=== PATIENT | female | born 1950 | race Caucasian/White ===

== ENCOUNTER 2018-04-27 13:14 | Inpatient (IN) | payer MEDICARE, OTHER, SELFPAY ==
[2018-04-27] VITALS (12 sets, daily range): BP systolic 69–145; BP diastolic 50–76; PULSE 56–100; RESP 14–18; TEMP 36.6–38.3; O2SAT 91–99; BMI 42.9; BMI 45.8; BMI 45.9
--- NOTE | 2018-04-27 13:47 | CT_ITS ---
STUDY: CT ABDOMEN AND PELVIS WITHOUT CONTRAST REASON FOR EXAM: Female, 67 years old. Left flank pain. RADIATION DOSAGE (If Supplied By Facility): CTDIvol = ( 24.18 ) mGy, DLP = ( 1208.07 ) mGycm TECHNIQUE: Transaxial images were obtained from the dome of the diaphragm to the symphysis pubis without oral contrast, and without intravenous contrast. Sagittal and coronal images were reconstructed. Individualized dose optimization techniques were used for this CT. COMPARISON: None. FINDINGS: Minimally increased linear markings at the lung bases suggestive of atelectasis. Coronary artery calcification. There is decreased attenuation of the liver consistent with steatosis. There are multiple gallstones. Normal spleen. Normal pancreas. There is a small, circumscribed, smooth, low attenuation left adrenal mass, consistent with an adrenal adenoma. This measures 2.1 cm. Normal right adrenal gland. Normal right kidney. Left perinephric stranding. Mild degree of left hydronephrosis due to a 6.4 mm calculus at the left ureteral pelvic junction. There is a small hiatal hernia. Normal small intestine. Normal colon. The appendix is visualized and appears normal. There is diffuse atherosclerotic calcification of the abdominal aorta and its major visceral branches, without a demonstrated aneurysm. Normal inferior vena cava. Normal retroperitoneum. Normal urinary bladder. Evidence of prior bilateral tubal ligation. Varicosities are seen in both groins. There are degenerative changes of the visualized lumbar spine. CT/Abdomen/Pelvis without Cont IMPRESSION: 6.4 mm catheter is at the left ureteropelvic junction causing left hydronephrosis. Findings suggestive of a 2.1 cm adenoma in the left adrenal gland. Cholelithiasis. Electronically Signed: Donaldo Gambino MD at 15:12 EDT Tel [phone], Service support ,
[2018-04-27] MEDS: 0.9% Normal Saline 1,000 ML 125 ML IV (14:24)
[2018-04-27] MEDS: Ketorolac 30 MG/ML Syringe 15 MG IV (14:25)
[2018-04-27] MEDS: Morphine 4 MG/ML Syringe IV (14:25)
[2018-04-27] MEDS: Ondansetron 4 MG/2 ML Vial IV (14:25)
[2018-04-27 14:52] LABS: Absolute Lymphocyte Count 1.01 X10^3/ul (0.83-4.51); Basophil# 0.01 X10^3/uL; Basophil% 0.1 % (0-1); Hematocrit 44.2 % (37-47); Hemoglobin 14.4 g/dl (12.0-15.0); Lymphocyte # 1.01 X10^3/ul (4.0); Lymphocyte % 6.7 % (19-41); Mean Corp Hgb Conc 32.6 g/gl (32-36); Mean Corpuscular Hgb 29.4 pg (27.0-32.0); Mean Corpuscular Volume 90.2 fL (81-99); Mean Platelet Vol. 11.5 fl (6.2-12.0); Monocyte# 1.09 X10^3/uL; Monocyte% 7.2 % (0-10); Neutrophil # 12.99 X10^3/uL (2.7-7.7); Neutrophil % 85.9 % (47-70); POSITIVE COUNT NO; POSITIVE DIFFERENTIAL NO; POSITIVE MORPHOLOGY NO; Platelet Count 179 K/mm3 (150-450); RBC Distribution Width CV 14.2 % (11.6-14.6); RBC Distribution Width SD 46.4 fl (35.1-43.9); White Blood Count 15.1 K/mm3 (4.4-11.0)
[2018-04-27 14:52] LABS: Mucous, Urine 0 SEEN /hpf (<or=2+)
[2018-04-27 14:54] LABS: Color, Urine Yellow (Yellow); Glucose, Dipstick Normal (Normal); Ketone-Dipstick 5 mg/dl (Negative); Leukocyte Esterase-Dipstick 500 /ul (Negative); Nitrite-Dipstick Positive (Negative); Occult Blood-Urine 250 /ul (Negative); Protein-Dipstick 100 mg/dl (Negative); Urine Bilirubin Dipstick Negative (Negative); Urine Clarity Sl. Cloudy (Clear); Urine Urobilinogen Normal (Normal)
[2018-04-27 15:02] LABS: Bacteria 1+ /hpf (None Seen); Red Blood Cells-Urine 25-50 SEEN /hpf (0-5); Squamous Epithelial Cells - UA 0-5 SEEN /hpf (5-10); White Blood Cells 50-100 SEEN /hpf (0-5)
[2018-04-27 15:10] LABS: Anion Gap 11 (5-15); BUN 21 mg/dL (7-18); BUN/Creat Ratio 22.3 RATIO (10-20); Calcium,Total 8.8 mg/dL (8.5-10.1); Chloride 104 mmol/L (98-107); Creatinine, Serum 0.94 mg/dL (0.55-1.02); EST Glomerular Filtration Rate 63 mL/min (>60); Est Glom Filt Rate - Afr Amer 76 mL/min (>60); Estimated Creatinine Clearance 49.46 ml/min; Glucose 163 mg/dL (74-106); Potassium 3.9 mmol/L (3.5-5.1); Sodium Level 139 mmol/L (136-145)
--- NOTE | 2018-04-27 15:38 | ED.VISSUMM ---
- ER Visit Summary Date of Service: 04/27/18 Chief Complaint: [Left flank pain] History of Present Illness: The patient is a 67 F [presents to the emergency department with complaint of left flank pain that started yesterday. Patient had a hard time sleeping last night secondary to pain. Patient's been having dry heaves. She denies any dysuria however she has had frequency. She denies hematuria. Patient's had subjective fever and chills at home.] Physical Examination: [HEENT-PERRLA, EOMI. Cranial nerves II through XII grossly intact. TMs clear. Mucous membranes moist. No adenopathy. Cardiovascular-regular rate and rhythm without murmur or ectopy Lungs-clear to auscultation, chest wall stable without crepitus or subcu emphysema Abdomen-normoactive bowel sounds, soft. Patient has tenderness over the left CVA and mild tenderness over left upper quadrant. There is no rebound, rigidity, or perineal signs. Extremities-intact ?4, normal range of motion, normal pulses, atraumatic] Test Results: [CBC with differential obtained showed an elevated white blood cell count of 15,000, hemoglobin 14, hematocrit 44, platelets 179. Chemistries unremarkable. Urinalysis was positive for 500 leukocyte esterase positive for nitrites positive for 50-100 WBCs,25-50 RBCs and +1 bacteria.] CT flank obtained showed a 6.5 mm calculus at the left UPJ causing hydronephrosis Emergency Department Course and Treatment: [Patient was medicated with Dilaudid Zofran and Toradol and patient had good pain control. Patient was started on Rocephin 1 g IV.] Treatment Plan: [Case was discussed with who asked that we admit the medicine he will consult. I discussed case with Dr. Fajardo who will admit patient] Disposition: [Admit] Impression: [Kidney stone with colic UTI] This note was generated with [employer] dictation software. It may contain incorrect words, spelling, and punctuation that were not noted in review of the chart prior to signing ED Disposition - Plan for ED Patient: Chief Complaint: Flank Pain Referrals: Toño Hooker MD [Primary Care Provider] -
--- NOTE | 2018-04-27 15:42 | ED.DCSUM_ITS ---
- ER Visit Summary Date of Service: 04/27/18 Chief Complaint: [Left flank pain] History of Present Illness: The patient is a 67 F [presents to the emergency department with complaint of left flank pain that started yesterday. Patient had a hard time sleeping last night secondary to pain. Patient's been having dry heaves. She denies any dysuria however she has had frequency. She denies hematuria. Patient's had subjective fever and chills at home.] Physical Examination: [HEENT-PERRLA, EOMI. Cranial nerves II through XII grossly intact. TMs clear. Mucous membranes moist. No adenopathy. Cardiovascular-regular rate and rhythm without murmur or ectopy Lungs-clear to auscultation, chest wall stable without crepitus or subcu emphysema Abdomen-normoactive bowel sounds, soft. Patient has tenderness over the left CVA and mild tenderness over left upper quadrant. There is no rebound, rigidity , or perineal signs. Extremities-intact ?4, normal range of motion, normal pulses, atraumatic] Test Results: [CBC with differential obtained showed an elevated white blood cell count of 15,000, hemoglobin 14, hematocrit 44, platelets 179. Chemistries unremarkable. Urinalysis was positive for 500 leukocyte esterase positive for nitrites positive for 50-100 WBCs,25-50 RBCs and +1 bacteria.] CT flank obtained showed a 6.5 mm calculus at the left UPJ causing hydronephrosis Emergency Department Course and Treatment: [Patient was medicated with Dilaudid Zofran and Toradol and patient had good pain control. Patient was started on Rocephin 1 g IV.] Treatment Plan: [Case was discussed with who asked that we admit the medicine he will consult. I discussed case with Dr. Fajardo who will admit patient] Disposition: [Admit] Impression: [Kidney stone with colic UTI] This note was generated with [employer] dictation software. It may contain incorrect words, spelling, and punctuation that were not noted in review of the chart prior to signing ED Disposition - Plan for ED Patient: Chief Complaint: Flank Pain Referrals: Toño Hooker MD [Primary Care Provider] -
--- NOTE | 2018-04-27 16:18 | ED.RN ---
called report to Tania in [facility]
--- NOTE | 2018-04-27 16:28 | PCM.HP.STD ---
Problem List (1) HTN (hypertension) Status: Chronic (2) Type 2 diabetes mellitus Status: Chronic (3) Morbid obesity with BMI of 40.0-44.9, adult Status: Chronic (4) Hyperlipidemia Status: Chronic (5) Atrial fibrillation Status: Chronic (6) Recurrent nephrolithiasis Status: Acute (7) Pyelonephritis Status: Acute (8) Cholelithiasis Status: Chronic (9) Adrenal mass, left Status: Acute Comment: probable adenoma (10) Hydronephrosis of left kidney Status: Acute (11) History of colon polyps Status: Chronic Comment: benign, last colonoscopy in 2002 History of Present Illness Date of Admission: 04/27/18 Chief Complaint: Left back and flank pain associated with fever/chills/sweats and nausea/vomiting The patient is a 67 year old F with a past medical history of hypertension, diabetes mellitus type 2, atrial fibrillation, chronic anticoagulation with Eliquis, nephrolithiasis, hyperlipidemia and morbid obesity who presented to the emergency department at [facility] on 05-13 complaining of left flank pain and left lateral abdominal pain that started on 04/26/2018 at approximately 4 PM. She denied hematuria. She complained of fever, chills, sweats, nausea and vomiting in addition to the pain. CT scan of the abdomen and pelvis done in the emergency room showed left perinephric stranding with a mild degree of left hydronephrosis due to a 6.4 mm calculus at the left UP junction. Coincidental findings included a 2.1 cm left adrenal mass, a small hiatal hernia, steatosis, multiple gallstones and diffuse atherosclerotic calcification of the abdominal aorta and its major visceral branches without a demonstrated aneurysm. Significant lab included an elevated white blood cell count at 15.1 with 86% neutrophils. Hemoglobin and platelets were within normal limits. Electrolytes were within normal limits and the BUN was 21 with a creatinine of 0.94. UA was positive for nitrite and had 50-100 WBCs per high-power field and 25-50 RBCs. She was given 1 g of ceftriaxone in the emergency room and sent to surgery for Stent placement by Dr. Webb. Past Medical History Past Medical History (Chronic Problems): Chronic Problems HTN (hypertension) (Chronic) Type 2 diabetes mellitus (Chronic) Morbid obesity with BMI of 40.0-44.9, adult (Chronic) Hyperlipidemia (Chronic) Atrial fibrillation (Chronic) Cholelithiasis (Chronic) History of colon polyps (Chronic) benign, last colonoscopy in 2002 Allergies No Known Allergies Allergy (Verified 04/27/18 13:15) Home Medications: Ambulatory Orders Medication Instructions Recorded Apixaban [Eliquis] 5 mg PO BID 04/27/18 Diltiazem HCl [Cartia Xt] 180 mg PO DAILY 04/27/18 Metformin HCl 500 mg PO DAILY 04/27/18 Pravastatin [Pravachol] 40 mg PO QHS 04/27/18 Ubidecarenone [Co Q-10] 200 mg PO DAILY 04/27/18 Valsartan [Diovan] 160 mg PO DAILY 04/27/18 Surgical History: - - Tubal ligation, section, resection of a portion of the labia due to cysts Psychiatric History: No pertinent psych hx 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 A maternal aunt also had a stroke. Paternal History Items: - - Father at the age of 80 and the cause of is not known. Offspring History Items: - - She has 1 child, a son, and he is healthy. Review of Systems Constitutional: Reports: Chills, Fever, Night Sweats Eyes: Denies: Vision Change HEENT: Denies: Head Aches, Sinus Congestion, Sinus Drainage, Sore Throat Cardiovascular: Reports: Edema. Denies: Chest Pain, Light Headedness, Palpitations, Paroxysmal Noc. Dyspnea, Syncope Respiratory: Denies: Cough, Shortness of Breath, Sputum production, Wheezing Gastrointestinal: Reports: Nausea, Vomiting. Denies: Abdominal Pain, Diarrhea Genitourinary: Reports: - - She has Left Flank pain. Denies: Dysuria, Hematuria, Incontinence, Retention Gynecological: Denies: Breast symptoms, Vaginal discharge Musculoskeletal: Denies: Joint Pain, Joint Tenderness Skin: Denies: Jaundice, Rash, Wounds Neurological: Denies: Numbness, Tingling, Focal weakness Psychiatric: Denies: Anxiety, Depression, Homicidal Ideations, Suicidal Ideations Endocrine: Reports: Change in Body Habitus - has lost 50-60 punds in the last 2 years....intentional. Denies: Hx of Thyroiditis Hematologic/ Lymphatic: Denies: Hx of blood clot VTE Information - Inpt Only VTE Present on Admission: No VTE Mechan Device Prophylaxis: None VTE Pharm Prophylaxis ordered?: No Reason prophylaxis not ordered:: Treatment Not Indicated - Patient is on Eliquis twice daily for treatment of atrial fibrillation. Patient Problems: Active and Suspected Problems Recurrent nephrolithiasis (Acute) Pyelonephritis (Acute) Adrenal mass, left (Acute) probable adenoma Hydronephrosis of left kidney (Acute) - Physical Exam General: Alert, Oriented x3, Cooperative, Well developed, Well nourished HEENT: Atraumatic, PERRLA, EOMI, Normocephalic Oral: No Gingival or Mucosal Lesions/ Ulcerations, Dry Mucosa Neck: No JVD, Negative Carotid Bruits, No Nodes, Trachea Midline Lungs: Clear to auscultation, No rhonchi, No wheeze, No rales Cardiovascular: No murmurs, Irregular Rate, No rub noted, No Gallop, - - She is in atrial fibrillation Abdomen: Bowel Sounds Present, Soft, Non Tender, Non-Distended, No Hepato-splenomegaly, - - She does have pain in the left flank Extremities: No clubbing, No cyanosis, No Calf Tenderness, Edema - Trace edema of the ankles bilaterally and the dorsum of the foot, Peripheral Pulses Normal, - - She has superficial varicosities of both lower extremities Skin: No rashes, No breakdown Musculoskeletal: No Muscle Wasting Neurological: Cranial nerves II-XII grossly intact, Neuro grossly intact Psych/Mental Status: Normal Affect, Appropriate Vital Signs Temp Pulse Resp BP Pulse Ox 98.5 F 100 16 145/76 H 99 04/27/18 13:15 04/27/18 13:15 04/27/18 13:15 04/27/18 13:15 04/27/18 13:15 Oxygen Delivery Method Room Air Weight: 250 lb Body Mass Index (BMI) 42.9 Laboratory Tests Past 24 Hrs 04/27/18 04/27/18 04/27/18 14:25 14:25 14:45 WBC 15.1 H RBC 4.90 Hgb 14.4 Hct 44.2 MCV 90.2 MCH 29.4 MCHC 32.6 RDW 14.2 RDW Differential 46.4 H Plt Count 179 MPV 11.5 Immature Gran % (Auto) 0.100 Neut % (Auto) 85.9 H Lymph % (Auto) 6.7 L [place] % (Auto) 7.2 Eos % (Auto) 0.0 Baso % (Auto) 0.1 Absolute Neuts (auto) 13.0 H Absolute Lymphs (auto) 1.01 Total Counted Not Reportable Sodium 139 Potassium 3.9 Chloride 104 Carbon Dioxide 24.0 Anion Gap 11 BUN 21 H Creatinine 0.94 Estim Creat Clear Calc 49.46 Est GFR (MDRD) Af Amer 76 Est GFR (MDRD) Non-Af 63 BUN/Creatinine Ratio 22.3 H Glucose 163 H Calcium 8.8 Urine Color Yellow Urine Clarity Sl. Cloudy Urine pH 5.0 Ur Specific [place] 1.020 Urine Protein 100 H Urine Glucose (UA) Normal Urine Ketones 5 H Urine Occult Blood 250 H Urine Nitrite Positive H Urine Bilirubin Negative Urine Urobilinogen Normal Ur Leukocyte Esterase 500 H Urine RBC 25-50 SEEN Urine WBC 50-100 SEEN Ur Squamous Epith Cells 0-5 SEEN Urine Bacteria 1+ Urine Mucus 0 SEEN Assessment/Plan All Active Problems Recurrent nephrolithiasis (Acute) Pyelonephritis (Acute) Adrenal mass, left (Acute) Hydronephrosis of left kidney (Acute) Impressions 1. Pyelonephritis 2. Left hydronephrosis 3. Recurrent nephrolithiasis with stone impacted at the left UPJ 4. Hypertension 5. Diabetes mellitus type 2 6. Hyperlipidemia 7. Morbid obesity 8. Cholelithiasis 9. Left adrenal mass-likely a adenoma 10. Steatosis Pt taken directly to surgery from the ED. Antibiotics IV fluids urine and blood cultures check a lactic acid and hemoglobin A1c Recheck the lab in the AM Hold Eliquis for now and if no significant hematuria can likely restart in the AM Continue diltiazem, pravastatin and valsartan. Hold metformin for today and order 4 times daily Accu-Cheks with sliding scale insulin coverage Consult Dr. Webb Code Visit Inpatient E&M: 41296 Init Hosp L3
--- NOTE | 2018-04-27 16:39 | HP.PCM_ITS ---
Problem List (1) HTN (hypertension) Status: Chronic (2) Type 2 diabetes mellitus Status: Chronic (3) Morbid obesity with BMI of 40.0-44.9, adult Status: Chronic (4) Hyperlipidemia Status: Chronic (5) Atrial fibrillation Status: Chronic (6) Recurrent nephrolithiasis Status: Acute (7) Pyelonephritis Status: Acute (8) Cholelithiasis Status: Chronic (9) Adrenal mass, left Status: Acute Comment: probable adenoma (10) Hydronephrosis of left kidney Status: Acute (11) History of colon polyps Status: Chronic Comment: benign, last colonoscopy in 2002 History of Present Illness Date of Admission: 04/27/18 Chief Complaint: Left back and flank pain associated with fever/chills/sweats and nausea/vomiting The patient is a 67 year old F with a past medical history of hypertension, diabetes mellitus type 2, atrial fibrillation, chronic anticoagulation with Eliquis, nephrolithiasis, hyperlipidemia and morbid obesity who presented to the emergency department at [facility] on 05-13 complaining of left flank pain and left lateral abdominal pain that started on 04/26/2018 at approximately 4 PM. She denied hematuria. She complained of fever, chills, sweats, nausea and vomiting in addition to the pain. CT scan of the abdomen and pelvis done in the emergency room showed left perinephric stranding with a mild degree of left hydronephrosis due to a 6.4 mm calculus at the left UP junction. Coincidental findings included a 2.1 cm left adrenal mass, a small hiatal hernia, steatosis, multiple gallstones and diffuse atherosclerotic calcification of the abdominal aorta and its major visceral branches without a demonstrated aneurysm. Significant lab included an elevated white blood cell count at 15.1 with 86% neutrophils. Hemoglobin and platelets were within normal limits. Electrolytes were within normal limits and the BUN was 21 with a creatinine of 0.94. UA was positive for nitrite and had 50-100 WBCs per high- power field and 25-50 RBCs. She was given 1 g of ceftriaxone in the emergency room and sent to surgery for Stent placement by Dr. Webb. Past Medical History Past Medical History (Chronic Problems): Chronic Problems HTN (hypertension) (Chronic) Type 2 diabetes mellitus (Chronic) Morbid obesity with BMI of 40.0-44.9, adult (Chronic) Hyperlipidemia (Chronic) Atrial fibrillation (Chronic) Cholelithiasis (Chronic) History of colon polyps (Chronic) benign, last colonoscopy in 2002 Allergies No Known Allergies Allergy (Verified 04/27/18 13:15) Home Medications: Ambulatory Orders Medication Instructions Recorded Apixaban [Eliquis] 5 mg PO BID 04/27/18 Diltiazem HCl [Cartia Xt] 180 mg PO DAILY 04/27/18 Metformin HCl 500 mg PO DAILY 04/27/18 Pravastatin [Pravachol] 40 mg PO QHS 04/27/18 Ubidecarenone [Co Q-10] 200 mg PO DAILY 04/27/18 Valsartan [Diovan] 160 mg PO DAILY 04/27/18 Surgical History: - - Tubal ligation, section, resection of a portion of the labia due to cysts Psychiatric History: No pertinent psych hx 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 A maternal aunt also had a stroke. Paternal History Items: - - Father at the age of 80 and the cause of is not known. Offspring History Items: - - She has 1 child, a son, and he is healthy. Review of Systems Constitutional: Reports: Chills, Fever, Night Sweats Eyes: Denies: Vision Change HEENT: Denies: Head Aches, Sinus Congestion, Sinus Drainage, Sore Throat Cardiovascular: Reports: Edema. Denies: Chest Pain, Light Headedness, Palpitations, Paroxysmal Noc. Dyspnea, Syncope Respiratory: Denies: Cough, Shortness of Breath, Sputum production, Wheezing Gastrointestinal: Reports: Nausea, Vomiting. Denies: Abdominal Pain, Diarrhea Genitourinary: Reports: - - She has Left Flank pain. Denies: Dysuria, Hematuria , Incontinence, Retention Gynecological: Denies: Breast symptoms, Vaginal discharge Musculoskeletal: Denies: Joint Pain, Joint Tenderness Skin: Denies: Jaundice, Rash, Wounds Neurological: Denies: Numbness, Tingling, Focal weakness Psychiatric: Denies: Anxiety, Depression, Homicidal Ideations, Suicidal Ideations Endocrine: Reports: Change in Body Habitus - has lost 50-60 punds in the last 2 years....intentional. Denies: Hx of Thyroiditis Hematologic/ Lymphatic: Denies: Hx of blood clot VTE Information - Inpt Only VTE Present on Admission: No VTE Mechan Device Prophylaxis: None VTE Pharm Prophylaxis ordered?: No Reason prophylaxis not ordered:: Treatment Not Indicated - Patient is on Eliquis twice daily for treatment of atrial fibrillation. Patient Problems: Active and Suspected Problems Recurrent nephrolithiasis (Acute) Pyelonephritis (Acute) Adrenal mass, left (Acute) probable adenoma Hydronephrosis of left kidney (Acute) - Physical Exam General: Alert, Oriented x3, Cooperative, Well developed, Well nourished HEENT: Atraumatic, PERRLA, EOMI, Normocephalic Oral: No Gingival or Mucosal Lesions/ Ulcerations, Dry Mucosa Neck: No JVD, Negative Carotid Bruits, No Nodes, Trachea Midline Lungs: Clear to auscultation, No rhonchi, No wheeze, No rales Cardiovascular: No murmurs, Irregular Rate, No rub noted, No Gallop, - - She is in atrial fibrillation Abdomen: Bowel Sounds Present, Soft, Non Tender, Non-Distended, No Hepato- splenomegaly, - - She does have pain in the left flank Extremities: No clubbing, No cyanosis, No Calf Tenderness, Edema - Trace edema of the ankles bilaterally and the dorsum of the foot, Peripheral Pulses Normal, - - She has superficial varicosities of both lower extremities Skin: No rashes, No breakdown Musculoskeletal: No Muscle Wasting Neurological: Cranial nerves II-XII grossly intact, Neuro grossly intact Psych/Mental Status: Normal Affect, Appropriate Vital Signs Temp Pulse Resp BP Pulse Ox 98.5 F 100 16 145/76 H 99 04/27/18 13:15 04/27/18 13:15 04/27/18 13:15 04/27/18 13:15 04/27/18 13:15 Oxygen Delivery Method Room Air Weight: 250 lb Body Mass Index (BMI) 42.9 Laboratory Tests Past 24 Hrs 04/27/18 04/27/18 04/27/18 14:25 14:25 14:45 WBC 15.1 H RBC 4.90 Hgb 14.4 Hct 44.2 MCV 90.2 MCH 29.4 MCHC 32.6 RDW 14.2 RDW Differential 46.4 H Plt Count 179 MPV 11.5 Immature Gran % (Auto) 0.100 Neut % (Auto) 85.9 H Lymph % (Auto) 6.7 L [place] % (Auto) 7.2 Eos % (Auto) 0.0 Baso % (Auto) 0.1 Absolute Neuts (auto) 13.0 H Absolute Lymphs (auto) 1.01 Total Counted Not Reportable Sodium 139 Potassium 3.9 Chloride 104 Carbon Dioxide 24.0 Anion Gap 11 BUN 21 H Creatinine 0.94 Estim Creat Clear Calc 49.46 Est GFR (MDRD) Af Amer 76 Est GFR (MDRD) Non-Af 63 BUN/Creatinine Ratio 22.3 H Glucose 163 H Calcium 8.8 Urine Color Yellow Urine Clarity Sl. Cloudy Urine pH 5.0 Ur Specific [place] 1.020 Urine Protein 100 H Urine Glucose (UA) Normal Urine Ketones 5 H Urine Occult Blood 250 H Urine Nitrite Positive H Urine Bilirubin Negative Urine Urobilinogen Normal Ur Leukocyte Esterase 500 H Urine RBC 25-50 SEEN Urine WBC 50-100 SEEN Ur Squamous Epith Cells 0-5 SEEN Urine Bacteria 1+ Urine Mucus 0 SEEN Assessment/Plan All Active Problems Recurrent nephrolithiasis (Acute) Pyelonephritis (Acute) Adrenal mass, left (Acute) Hydronephrosis of left kidney (Acute) Impressions 1. Pyelonephritis 2. Left hydronephrosis 3. Recurrent nephrolithiasis with stone impacted at the left UPJ 4. Hypertension 5. Diabetes mellitus type 2 6. Hyperlipidemia 7. Morbid obesity 8. Cholelithiasis 9. Left adrenal mass-likely a adenoma 10. Steatosis Pt taken directly to surgery from the ED. Antibiotics IV fluids urine and blood cultures check a lactic acid and hemoglobin A1c Recheck the lab in the AM Hold Eliquis for now and if no significant hematuria can likely restart in the AM Continue diltiazem, pravastatin and valsartan. Hold metformin for today and order 4 times daily Accu-Cheks with sliding scale insulin coverage Consult Dr. Webb Code Visit Inpatient E&M: 83252 Init Hosp L3
[2018-04-27] MEDS: Ceftriaxone 1 GM/50 ML BAG IV (18:50)
--- NOTE | 2018-04-27 18:58 | CON.PCM_ITS ---
Problem List (1) Left ureteral calculus Status: Acute Reason for Consult Date of Consultation: 04/27/18 Reason for Consultation: Obstruction of the left kidney from a proximal ureteral calculi History of Present Illness: The patient is a 67 year old female with multiple medical problems who presented to the emergency room with a severe pain from the left side from obstructing stone in the proximal left ureter patient was admitted for pain control and plan to place a stent to alleviate the obstruction and clear any infection. Past Medical History Past Medical History (Chronic Problems): Chronic Problems HTN (hypertension) (Chronic) Type 2 diabetes mellitus (Chronic) Morbid obesity with BMI of 40.0-44.9, adult (Chronic) Hyperlipidemia (Chronic) Atrial fibrillation (Chronic) Cholelithiasis (Chronic) History of colon polyps (Chronic) benign, last colonoscopy in 2002 Allergies No Known Allergies Allergy (Verified 04/27/18 13:15) Home Medications: Ambulatory Orders Medication Instructions Recorded Apixaban [Eliquis] 10 mg PO BID 04/27/18 Diltiazem HCl [Cartia Xt] 180 mg PO DAILY 04/27/18 Metformin HCl 500 mg PO DAILY 04/27/18 Pravastatin [Pravachol] 40 mg PO QHS 04/27/18 Ubidecarenone [Co Q-10] 200 mg PO DAILY 04/27/18 Valsartan [Diovan] 160 mg PO DAILY 04/27/18 Surgical History: noncontributory, - - Tubal ligation, section, resection of a portion of the labia due to cysts Psychiatric History: No pertinent psych hx LEADER WRITER History: No pertinent LEADER WRITER history Lives: Spouse/ Significant Other Smoking Status: Never smoker Tobacco Use: Non-smoker Alcohol: None Drugs: None - *Family History Maternal History Items: - - Mother with a stroke. A maternal aunt also had a stroke. Paternal History Items: - - Father at the age of 80 and the cause of is not known. Offspring History Items: - - She has 1 child, a son, and he is healthy. Review of Systems Constitutional: Denies: Chills, Fever, Weight Change HEENT: Denies: Head Aches, Sinus Congestion, Sinus Drainage Cardiovascular: Denies: Chest Pain, Palpitations Respiratory: Denies: Cough, Shortness of breath at rest, Sputum production Gastrointestinal: Reports: Abdominal Pain. Denies: Nausea, Vomiting Genitourinary: Denies: Dysuria Musculoskeletal: Denies: Joint Pain, Joint Tenderness Skin: Denies: Rash, Wounds Neurological: Denies: Numbness, Tingling, Focal weakness Psychiatric: Denies: Anxiety, Depression, Homicidal Ideations, Suicidal Ideations Hematologic/ Lymphatic: Denies: Easy Bruising, Easy Bleeding Physical Exam - Physical Exam Vital Signs Temp 98.5 F 04/27/18 13:15 Pulse 100 04/27/18 13:15 Resp 16 04/27/18 13:15 BP 145/76 H 04/27/18 13:15 Pulse Ox 99 04/27/18 13:15 Intake & Output 04/25/18 04/26/18 04/27/18 23:59 23:59 23:59 Weight: 113.398 kg General: Alert, Oriented x3 HEENT: Atraumatic Oral: Moist Mucosa Neck: Supple Lungs: Normal air movement Cardiovascular: Regular rate, Regular Rhythm Abdomen: Bowel Sounds Present Groin: No hernia Extremities: No clubbing, No cyanosis, No edema Laboratory Tests Past 24 Hrs 04/27/18 04/27/18 04/27/18 14:25 14:25 14:45 WBC 15.1 H RBC 4.90 Hgb 14.4 Hct 44.2 MCV 90.2 MCH 29.4 MCHC 32.6 RDW 14.2 RDW Differential 46.4 H Plt Count 179 MPV 11.5 Immature Gran % (Auto) 0.100 Neut % (Auto) 85.9 H Lymph % (Auto) 6.7 L [place] % (Auto) 7.2 Eos % (Auto) 0.0 Baso % (Auto) 0.1 Absolute Neuts (auto) 13.0 H Absolute Lymphs (auto) 1.01 Total Counted Not Reportable Sodium 139 Potassium 3.9 Chloride 104 Carbon Dioxide 24.0 Anion Gap 11 BUN 21 H Creatinine 0.94 Estim Creat Clear Calc 49.46 Est GFR (MDRD) Af Amer 76 Est GFR (MDRD) Non-Af 63 BUN/Creatinine Ratio 22.3 H Glucose 163 H Calcium 8.8 Urine Color Yellow Urine Clarity Sl. Cloudy Urine pH 5.0 Ur Specific [place] 1.020 Urine Protein 100 H Urine Glucose (UA) Normal Urine Ketones 5 H Urine Occult Blood 250 H Urine Nitrite Positive H Urine Bilirubin Negative Urine Urobilinogen Normal Ur Leukocyte Esterase 500 H Urine RBC 25-50 SEEN Urine WBC 50-100 SEEN Ur Squamous Epith Cells 0-5 SEEN Urine Bacteria 1+ Urine Mucus 0 SEEN Assessment/Plan All Active Problems Recurrent nephrolithiasis (Acute) Pyelonephritis (Acute) Adrenal mass, left (Acute) Hydronephrosis of left kidney (Acute) Left ureteral calculus (Acute) Plan for cystoscopy and left stent placement. Will then clear her infection with antibiotics and I will have my office set her up for ESWL of the left side next week.
[2018-04-27] MEDS: Lidocaine Jelly 2% 20 ML Syringe (URO-JET) 20 APPLIC (19:02)
--- NOTE | 2018-04-27 19:09 | PCM.OPRPT ---
Problem List (1) Left ureteral calculus Status: Acute Report of Operation Date of Procedure: 04/27/18 Pre-Operative Diagnosis: Left proximal ureteral calculi Post-Operative Diagnosis: Same Surgery/Procedure Performed:: Cystoscopy left stent placement Description of Surgical Findings:: 67-year-old female taken back to the operating room at the smooth induction of MAC local anesthesia she was placed supine on the table the legs in dorsal lithotomy position, the urethra and vaginal area were prepped and draped in usual sterile fashion, went into the bladder with a 21 [place] rigid cystourethroscope, she had a very tilted bladder with a significant cystocele at the deflect quite a bit in order to find ureteral orifices I then used a Glidewire and cannulated the left ureteral orifice advanced a wire up into the left kidney and then once a wire was in place I left the stent over the wire pulled the wire the stent coiled in good position in the kidney and bladder at the string of the stent and trimmed the length of the string. Patient's bladder was emptied her anesthesia was reversed and she can be admitted to the hospital for her infection and kidney stone. Plan to set her up in about a week for left ESWL. Type of Anesthesia:: Local MAC Drains: stent left side - Admit VTE Documentation VTE Present on Admission: No VTE Mechan Device Prophylaxis: SCD's VTE Pharm Prophylaxis ordered?: No Reason prophylaxis not ordered:: Treatment Not Indicated
[2018-04-27 19:31] LABS: Bedside Glucose 121 mg/dL (70-110)
[2018-04-27 22:19] LABS: Hemoglobin A1c 6.5 % (4.2-6.3)
[2018-04-27] MEDS: Famotidine 20 MG Tablet PO (23:06)
[2018-04-27] MEDS: Insulin Lispro 100 UNIT/ML INSULN.PEN SC (23:15)
[2018-04-27 23:25] LABS: Bedside Glucose 156 mg/dL (70-110)
[2018-04-27] MEDS: oxyCODONE 5 MG Tablet PO (23:41)
[2018-04-27] MEDS: Acetaminophen 325 MG Tablet 650 MG PO (23:47)
[2018-04-28] VITALS (14 sets, daily range): BP systolic 94–130; BP diastolic 47–67; PULSE 82–114; RESP 14–18; TEMP 37.1–38.8; O2SAT 91–96
[2018-04-28] MEDS: 0.9% Normal Saline 1,000 ML 125 ML IV ×3 (02:06→18:20)
[2018-04-28] MEDS: oxyCODONE 5 MG Tablet PO ×3 (05:14→21:06)
[2018-04-28 05:40] LABS: Absolute Lymphocyte Count 1.81 X10^3/ul (0.83-4.51); Absolute Neutrophil Count 11.4 X10^3/uL (2.0-7.7); Basophil# 0.02 X10^3/uL; Basophil% 0.1 % (0-1); Eosinophil# 0.01 X10^3/uL; Eosinophils% 0.1 % (0-5); Hematocrit 40.6 % (37-47); Hemoglobin 13.1 g/dl (12.0-15.0); Lymphocyte # 1.81 X10^3/ul (4.0); Lymphocyte % 12.8 % (19-41); Mean Corp Hgb Conc 32.3 g/gl (32-36); Mean Corpuscular Hgb 29.4 pg (27.0-32.0); Mean Corpuscular Volume 91.2 fL (81-99); Mean Platelet Vol. 11.5 fl (6.2-12.0); Monocyte# 0.85 X10^3/uL; Neutrophil # 11.42 X10^3/uL (2.7-7.7); Neutrophil % 80.9 % (47-70); Platelet Count 153 K/mm3 (150-450); RBC Distribution Width CV 14.6 % (11.6-14.6); RBC Distribution Width SD 49.4 fl (35.1-43.9); Red Blood Count 4.45 M/mm3 (4.2-5.4); White Blood Count 14.1 K/mm3 (4.4-11.0)
[2018-04-28 05:43] LABS: POSITIVE COUNT NO; POSITIVE DIFFERENTIAL NO; POSITIVE MORPHOLOGY NO
[2018-04-28 05:57] LABS: ALB/GLOB Ratio 0.7 RATIO (0.9-2.4); AST(SGOT) 39 U/L (15-37); Alanine Aminotransfer ALT/SGPT 32 U/L (13-56); Alkaline Phosphatase 75 U/L (45-117); Anion Gap 9 (5-15); BUN 22 mg/dL (7-18); BUN/Creat Ratio 25.3 RATIO (10-20); Calcium,Total 8.1 mg/dL (8.5-10.1); Chloride 108 mmol/L (98-107); Cholesterol 113 mg/dL (200); Creatinine, Serum 0.87 mg/dL (0.55-1.02); EST Glomerular Filtration Rate 69 mL/min (>60); Est Glom Filt Rate - Afr Amer 83 mL/min (>60); Estimated Creatinine Clearance 53.44 ml/min; Globulin 4.1 g/dL (2.2-4.2); Glucose 147 mg/dL (74-106); High Density Lipoprotein 39 mg/dL; Phosphorus 2.5 mg/dL (2.5-4.9); Potassium 4.1 mmol/L (3.5-5.1); Protein, Total 7.1 g/dL (6.4-8.2); Sodium Level 139 mmol/L (136-145); Triglycerides 136 mg/dL; Very Low Density Lipoprotein 27 mg/dL (5-40)
[2018-04-28 06:50] LABS: Bedside Glucose 161 mg/dL (70-110)
[2018-04-28] MEDS: Famotidine 20 MG Tablet PO ×2 (09:23→22:23)
[2018-04-28] MEDS: Acetaminophen 325 MG Tablet 650 MG PO (09:31)
[2018-04-28] MEDS: Ceftriaxone 1 GM/50 ML BAG IV (09:31)
--- NOTE | 2018-04-28 10:56 | PCM.PN.HOSP ---
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 Vitals/I&O's: Vital Signs Temp Pulse Resp BP Pulse Ox 100.4 F H 87 18 109/65 92 04/28/18 09:15 04/28/18 09:15 04/28/18 09:15 04/28/18 09:15 04/28/18 09:15 Oxygen Flow Rate (L/min) 3 Oxygen Delivery Method Room Air Weight: 121.3 kg Body Mass Index (BMI) 45.8 Intake and Output for Last 24 Hours 04/26/18 04/27/18 04/28/18 23:59 23:59 23:59 Intake Total 2100 / 2100 1003 / 1003 Output Total 400 / 400 200 / 200 Balance 1700 / 1700 803 / 803 General: Alert, Oriented x3, Cooperative HEENT: Atraumatic, PERRLA, EOMI, Normocephalic Neck: Supple, No JVD, Negative Carotid Bruits Lungs: Clear to auscultation, Normal air movement Cardiovascular: Irregular Rate, - - Irregularly irregular rhythm. Abdomen: - - No CVA tenderness on the right side. However patient refuse to have her left flank punched secondary to fear of tenderness. Extremities: No edema, Capillary Refill Less than 3 Seconds Skin: No rashes Musculoskeletal: No Tenderness to Palpation of Joints or Extremities Neurological: Cranial nerves II-XII grossly intact Psych/Mental Status: Normal Affect, Appropriate Microbiology Past 72 Hours 04/28/18 05:10 Urine, Clean Catch Urine Culture - Preliminary Culture exhibits no growth. Laboratory Results 04/27/18 19:27: POC Glucose 121 H 04/27/18 21:02: Hemoglobin A1c 6.5 H 04/27/18 23:03: POC Glucose 156 H 04/28/18 05:15: WBC 14.1 H, RBC 4.45, Hgb 13.1, Hct 40.6, MCV 91.2, MCH 29.4, MCHC 32.3, RDW 14.6, RDW Differential 49.4 H, Plt Count 153, MPV 11.5, Immature Gran % (Auto) 0.100, Neut % (Auto) 80.9 H, Lymph % (Auto) 12.8 L, [place] % (Auto) 6.0, Eos % (Auto) 0.1, Baso % (Auto) 0.1, Absolute Neuts (auto) 11.4 H, Absolute Lymphs (auto) 1.81, Total Counted Not Reportable 04/28/18 05:15: Sodium 139, Potassium 4.1, Chloride 108 H, Carbon Dioxide 22.0, Anion Gap 9, BUN 22 H, Creatinine 0.87, Estim Creat Clear Calc 53.44, Est GFR (MDRD) Af Amer 83, Est GFR (MDRD) Non-Af 69, BUN/Creatinine Ratio 25.3 H, Glucose 147 H, Calcium 8.1 L, Phosphorus 2.5, Magnesium 2.0, Total Bilirubin 1.00, AST 39 H, ALT 32, Alkaline Phosphatase 75, Total Protein 7.1, Albumin 3.0 L, Globulin 4.1, Albumin/Globulin Ratio 0.7 L, Triglycerides 136, Cholesterol 113, LDL Cholesterol 47, VLDL Cholesterol 27, HDL Cholesterol 39 L 04/28/18 06:39: POC Glucose 161 H Current Medications Acetaminophen (Tylenol) 650 mg PO Q6H PRN PRN PRN Reason: Mild Pain (scale 0-3)/T>100.7 Last Admin: 04/28/18 09:31 Dose: 650 mg Al Hydroxide/Mg Hydroxide (Mylanta Ii) 30 ml PO Q6H PRN PRN PRN Reason: Gastric Burning Bisacodyl (Dulcolax) 5 mg PO DAILY PRN PRN PRN Reason: Constipation Famotidine (Pepcid) 20 mg PO BID [facility] Last Admin: 04/28/18 09:23 Dose: 20 mg Sodium Chloride () 1,000 mls @ 125 mls/hr IV .Q8H [facility] Last Admin: 04/28/18 09:31 Dose: 125 mls/hr Ceftriaxone Sodium (Rocephin) 1 gm in 50 mls @ 100 mls/hr IV Q24 [facility] Last Admin: 04/28/18 09:31 Dose: 100 mls/hr Tobramycin Sulfate 270 mg/ (Dextrose) 56.75 mls @ 100 mls/hr IV Q24H [facility] Last Admin: 04/27/18 23:06 Dose: 100 mls/hr Insulin Human Lispro (Humalog Kwikpen (Bkc)) 0 unit SC ACHS [facility] PRN Reason: Protocol Last Admin: 04/28/18 09:22 Dose: Not Given Magnesium Hydroxide (Milk Of Magnesia) 30 ml PO DAILY PRN PRN Reason: Constipation Morphine Sulfate () 2 - 4 mg IV Q3H PRN PRN PRN Reason: Severe Pain (pain scale 6-10) Morphine Sulfate () 2 - 4 mg IV Q3H PRN PRN PRN Reason: Severe Pain (pain scale 6-10) Ondansetron HCl (Zofran) 4 mg IV Q8H PRN PRN PRN Reason: Nausea Oxycodone HCl (Oxyir) 5 mg PO Q4H PRN PRN PRN Reason: Moderate Pain (pain scale 4-5) Last Admin: 04/28/18 05:14 Dose: 5 mg Senna/Docusate Sodium (Senokot-S, Anna-Colace) 2 tablet PO BID [facility] Last Admin: 04/28/18 09:24 Dose: Not Given Sodium Chloride () 5 - 30 ml IV UD PRN PRN Reason: SALINE FLUSH Zolpidem Tartrate (Ambien (Generic)) 5 mg PO QHS PRN PRN PRN Reason: INSOMNIA Medical Necessity - Tobacco Use Smoking Status: Never smoker Tobacco Use: Non-smoker Assessment/Plan All Active Problems Recurrent nephrolithiasis (Acute) Pyelonephritis (Acute) Adrenal mass, left (Acute) Hydronephrosis of left kidney (Acute) Left ureteral calculus (Acute) 1.Acute recurrent nephrolithiasis. Status post cystoscopy left stent placement. Per competitive intelligence manager patient will follow up in a week's time for left ESWL 2.Acute pyelonephritis Associated with nephrolithiasis. Continue tobramycin and Ceftriaxone Urine culture is negative Blood culture is pending. We will continue IV antibiotics since since patient is nauseated, still febrile and she has chills. Clear liquid diet. 3.Persistent controlled A. fib Eliquis on hold because of hematuria. Risks and benefits of withholding anticoagulation was discussed with patient. Continue Cardizem p.o. 4.Type 2 diabetes A1c on 04/27/18 was 6.5. Hold metformin on hold. While in patient's, she has been placed on correction scale insulin. 5. Adrenal Incidentaloma Will check plasma catecholamines and am cortisol Patient counselled to follow up with PCP for clinically monitoring 6.HTN Chronic Vitals per unit routine Continue Cardizem po ok to hold home Valsartan for now since blood pressure is within range. Restart in the terminal gauger supervisor for kidney protection. 7.DVT prophylaxis SCD No chemical thromboprophylaxis because of hematuria. Disposition: Patient will will remain at the hospital today since she is clinically not ready to go home. Code Visit Inpatient E&M: 74351 Subs Hosp L2
--- NOTE | 2018-04-28 11:02 | PN_ITS ---
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 Vitals/I&O's: Vital Signs Temp Pulse Resp BP Pulse Ox 100.4 F H 87 18 109/65 92 04/28/18 09:15 04/28/18 09:15 04/28/18 09:15 04/28/18 09:15 04/28/18 09:15 Oxygen Flow Rate (L/min) 3 Oxygen Delivery Method Room Air Weight: 121.3 kg Body Mass Index (BMI) 45.8 Intake and Output for Last 24 Hours 04/26/18 04/27/18 04/28/18 23:59 23:59 23:59 Intake Total 2100 / 2100 1003 / 1003 Output Total 400 / 400 200 / 200 Balance 1700 / 1700 803 / 803 General: Alert, Oriented x3, Cooperative HEENT: Atraumatic, PERRLA, EOMI, Normocephalic Neck: Supple, No JVD, Negative Carotid Bruits Lungs: Clear to auscultation, Normal air movement Cardiovascular: Irregular Rate, - - Irregularly irregular rhythm. Abdomen: - - No CVA tenderness on the right side. However patient refuse to have her left flank punched secondary to fear of tenderness. Extremities: No edema, Capillary Refill Less than 3 Seconds Skin: No rashes Musculoskeletal: No Tenderness to Palpation of Joints or Extremities Neurological: Cranial nerves II-XII grossly intact Psych/Mental Status: Normal Affect, Appropriate Microbiology Past 72 Hours 04/28/18 05:10 Urine, Clean Catch Urine Culture - Preliminary Culture exhibits no growth. Laboratory Results 04/27/18 19:27: POC Glucose 121 H 04/27/18 21:02: Hemoglobin A1c 6.5 H 04/27/18 23:03: POC Glucose 156 H 04/28/18 05:15: WBC 14.1 H, RBC 4.45, Hgb 13.1, Hct 40.6, MCV 91.2, MCH 29.4, MCHC 32.3, RDW 14.6, RDW Differential 49.4 H, Plt Count 153, MPV 11.5, Immature Gran % (Auto) 0.100, Neut % (Auto) 80.9 H, Lymph % (Auto) 12.8 L, [place] % (Auto) 6.0, Eos % (Auto) 0.1, Baso % (Auto) 0.1, Absolute Neuts (auto) 11.4 H, Absolute Lymphs (auto) 1.81, Total Counted Not Reportable 04/28/18 05:15: Sodium 139, Potassium 4.1, Chloride 108 H, Carbon Dioxide 22.0, Anion Gap 9, BUN 22 H, Creatinine 0.87, Estim Creat Clear Calc 53.44, Est GFR ( MDRD) Af Amer 83, Est GFR (MDRD) Non-Af 69, BUN/Creatinine Ratio 25.3 H, Glucose 147 H, Calcium 8.1 L, Phosphorus 2.5, Magnesium 2.0, Total Bilirubin 1.00, AST 39 H, ALT 32, Alkaline Phosphatase 75, Total Protein 7.1, Albumin 3.0 L, Globulin 4.1, Albumin/Globulin Ratio 0.7 L, Triglycerides 136, Cholesterol 113, LDL Cholesterol 47, VLDL Cholesterol 27, HDL Cholesterol 39 L 04/28/18 06:39: POC Glucose 161 H Current Medications Acetaminophen (Tylenol) 650 mg PO Q6H PRN PRN PRN Reason: Mild Pain (scale 0-3)/T>100.7 Last Admin: 04/28/18 09:31 Dose: 650 mg Al Hydroxide/Mg Hydroxide (Mylanta Ii) 30 ml PO Q6H PRN PRN PRN Reason: Gastric Burning Bisacodyl (Dulcolax) 5 mg PO DAILY PRN PRN PRN Reason: Constipation Famotidine (Pepcid) 20 mg PO BID [facility] Last Admin: 04/28/18 09:23 Dose: 20 mg Sodium Chloride () 1,000 mls @ 125 mls/hr IV .Q8H [facility] Last Admin: 04/28/18 09:31 Dose: 125 mls/hr Ceftriaxone Sodium (Rocephin) 1 gm in 50 mls @ 100 mls/hr IV Q24 [facility] Last Admin: 04/28/18 09:31 Dose: 100 mls/hr Tobramycin Sulfate 270 mg/ (Dextrose) 56.75 mls @ 100 mls/hr IV Q24H [facility] Last Admin: 04/27/18 23:06 Dose: 100 mls/hr Insulin Human Lispro (Humalog Kwikpen (Bkc)) 0 unit SC ACHS [facility] PRN Reason: Protocol Last Admin: 04/28/18 09:22 Dose: Not Given Magnesium Hydroxide (Milk Of Magnesia) 30 ml PO DAILY PRN PRN Reason: Constipation Morphine Sulfate () 2 - 4 mg IV Q3H PRN PRN PRN Reason: Severe Pain (pain scale 6-10) Morphine Sulfate () 2 - 4 mg IV Q3H PRN PRN PRN Reason: Severe Pain (pain scale 6-10) Ondansetron HCl (Zofran) 4 mg IV Q8H PRN PRN PRN Reason: Nausea Oxycodone HCl (Oxyir) 5 mg PO Q4H PRN PRN PRN Reason: Moderate Pain (pain scale 4-5) Last Admin: 04/28/18 05:14 Dose: 5 mg Senna/Docusate Sodium (Senokot-S, Anna-Colace) 2 tablet PO BID [facility] Last Admin: 04/28/18 09:24 Dose: Not Given Sodium Chloride () 5 - 30 ml IV UD PRN PRN Reason: SALINE FLUSH Zolpidem Tartrate (Ambien (Generic)) 5 mg PO QHS PRN PRN PRN Reason: INSOMNIA Medical Necessity - Tobacco Use Smoking Status: Never smoker Tobacco Use: Non-smoker Assessment/Plan All Active Problems Recurrent nephrolithiasis (Acute) Pyelonephritis (Acute) Adrenal mass, left (Acute) Hydronephrosis of left kidney (Acute) Left ureteral calculus (Acute) 1.Acute recurrent nephrolithiasis. Status post cystoscopy left stent placement. Per sewer pipe layer patient will follow up in a week's time for left ESWL 2.Acute pyelonephritis Associated with nephrolithiasis. Continue tobramycin and Ceftriaxone Urine culture is negative Blood culture is pending. We will continue IV antibiotics since since patient is nauseated, still febrile and she has chills. Clear liquid diet. 3.Persistent controlled A. fib Eliquis on hold because of hematuria. Risks and benefits of withholding anticoagulation was discussed with patient. Continue Cardizem p.o. 4.Type 2 diabetes A1c on 04/27/18 was 6.5. Hold metformin on hold. While in patient's, she has been placed on correction scale insulin. 5. Adrenal Incidentaloma Will check plasma catecholamines and am cortisol Patient counselled to follow up with PCP for clinically monitoring 6.HTN Chronic Vitals per unit routine Continue Cardizem po ok to hold home Valsartan for now since blood pressure is within range. Restart in the extermination inspector for kidney protection. 7.DVT prophylaxis SCD No chemical thromboprophylaxis because of hematuria. Disposition: Patient will will remain at the hospital today since she is clinically not ready to go home. Code Visit Inpatient E&M: 45963 Subs Hosp L2
--- NOTE | 2018-04-28 12:37 | PCM.PN.BLA ---
Progress Note s/p stent for kidney stone on discharge will set patient up for outpatient surgery for stone. call with questions.
--- NOTE | 2018-04-28 13:34 | CASEMGMT ---
Face to Face with patient for initial transition planning/care coordination assessment. KAREN HALL introduced self and role at [facility], pt voices understanding and consents to assessment at this time. Pt is lying in bed in no distress at this time. Pt is A/O x4 at this time and answers all questions appropriately at this time. Care providers, pharmacy, and demographics verified. See attached link. Pt voices no further concerns/needs at this time. Advised pt to ask for CM if any further questions/concerns/needs arise, voices understanding. PLAN: [place] KAREN HALL
[2018-04-28 13:41] LABS: Bedside Glucose 126 mg/dL (70-110)
[2018-04-28] MEDS: Ondansetron 4 MG/2 ML Vial IV (15:05)
[2018-04-28 16:30] LABS: Bedside Glucose 122 mg/dL (70-110)
[2018-04-28] MEDS: Senna/Docusate Sodium 1 Tablet 2 TABLET PO (22:23)
[2018-04-29] VITALS (11 sets, daily range): BP systolic 108–163; BP diastolic 65–81; PULSE 74–103; RESP 18–20; TEMP 37.2–37.8; O2SAT 91–95
[2018-04-29 00:20] LABS: Bedside Glucose 135 mg/dL (70-110)
[2018-04-29] MEDS: 0.9% Normal Saline 1,000 ML 125 ML IV ×2 (03:29→11:08)
[2018-04-29] MEDS: 0.9% NaCl Peripheral Flush Adult/Peds IV ×2 (03:34→22:56)
[2018-04-29] MEDS: Ondansetron 4 MG/2 ML Vial IV ×2 (03:34→22:56)
[2018-04-29 05:52] LABS: Hematocrit 37.6 % (37-47); Hemoglobin 12.4 g/dl (12.0-15.0); Mean Platelet Vol. 11.8 fl (6.2-12.0); Platelet Count 141 K/mm3 (150-450); RBC Distribution Width CV 14.3 % (11.6-14.6); RBC Distribution Width SD 47.2 fl (35.1-43.9); Red Blood Count 4.13 M/mm3 (4.2-5.4); White Blood Count 9.3 K/mm3 (4.4-11.0)
[2018-04-29 06:01] LABS: Anion Gap 8 (5-15); BUN 13 mg/dL (7-18); BUN/Creat Ratio 23.8 RATIO (10-20); Chloride 108 mmol/L (98-107); Creatinine, Serum 0.55 mg/dL (0.55-1.02); EST Glomerular Filtration Rate 117 mL/min (>60); Est Glom Filt Rate - Afr Amer 142 mL/min (>60); Glucose 114 mg/dL (74-106); Potassium 3.7 mmol/L (3.5-5.1); Sodium Level 139 mmol/L (136-145)
[2018-04-29 06:15] LABS: Scan Indicated on CBC? Y/N NO
[2018-04-29 07:26] LABS: Bedside Glucose 115 mg/dL (70-110)
[2018-04-29] MEDS: oxyCODONE 5 MG Tablet PO ×2 (08:09→22:55)
[2018-04-29] MEDS: Famotidine 20 MG Tablet PO ×2 (11:01→23:04)
[2018-04-29] MEDS: Senna/Docusate Sodium 1 Tablet 2 TABLET PO (11:02)
[2018-04-29] MEDS: Ceftriaxone 1 GM/50 ML BAG IV (11:08)
[2018-04-29 11:35] LABS: Bedside Glucose 123 mg/dL (70-110)
[2018-04-29 17:10] LABS: Bedside Glucose 106 mg/dL (70-110)
--- NOTE | 2018-04-29 18:42 | PCM.PN.HOSP ---
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 She reports excessive urination. She has a poor appetite. She denies nausea or vomiting. She denies any chills. She denies hematuria or pain in her left flank. Vitals/I&O's: Vital Signs Temp Pulse Resp BP Pulse Ox 99.0 F 83 18 108/65 94 04/29/18 15:55 04/29/18 16:06 04/29/18 15:55 04/29/18 15:55 04/29/18 15:55 Oxygen Flow Rate (L/min) 3 Oxygen Delivery Method Room Air Weight: 121.3 kg Body Mass Index (BMI) 45.8 Intake and Output for Last 24 Hours 04/27/18 04/28/18 04/29/18 23:59 23:59 23:59 Intake Total 2100 / 2100 3706 / 3706 1071 / 1071 Output Total 400 / 400 1200 / 1200 700 / 700 Balance 1700 / 1700 2506 / 2506 371 / 371 General: Alert HEENT: Atraumatic, PERRLA, EOMI, Normocephalic Neck: Supple, No JVD, Negative Carotid Bruits Lungs: Clear to auscultation, Normal air movement Cardiovascular: Irregular Rate Abdomen: Bowel Sounds Present, Non Tender, Non-Distended Extremities: No edema, Capillary Refill Less than 3 Seconds Skin: No rashes, No breakdown Musculoskeletal: No Tenderness to Palpation of Joints or Extremities Neurological: Cranial nerves II-XII grossly intact, Unsteady Gait Psych/Mental Status: Normal Affect, Appropriate Microbiology Past 72 Hours 04/28/18 05:10 Urine, Clean Catch Urine Culture - Preliminary Culture exhibits no growth. Laboratory Results 04/28/18 10:50: Cortisol 30.70 H 04/28/18 22:17: POC Glucose 135 H 04/29/18 05:15: WBC 9.3, RBC 4.13 L, Hgb 12.4, Hct 37.6, MCV 91.0, MCH 30.0, MCHC 33.0, RDW 14.3, RDW Differential 47.2 H, Plt Count 141 L, MPV 11.8 04/29/18 05:15: Sodium 139, Potassium 3.7, Chloride 108 H, Carbon Dioxide 23.0, Anion Gap 8, BUN 13, Creatinine 0.55, Estim Creat Clear Calc 46.50, Est GFR (MDRD) Af Amer 142, Est GFR (MDRD) Non-Af 117, BUN/Creatinine Ratio 23.8 H, Glucose 114 H, Calcium 8.0 L 04/29/18 07:01: POC Glucose 115 H 04/29/18 11:01: POC Glucose 123 H 04/29/18 17:03: POC Glucose 106 Current Medications Acetaminophen (Tylenol) 650 mg PO Q6H PRN PRN PRN Reason: Mild Pain (scale 0-3)/T>100.7 Last Admin: 04/28/18 09:31 Dose: 650 mg Al Hydroxide/Mg Hydroxide (Mylanta Ii) 30 ml PO Q6H PRN PRN PRN Reason: Gastric Burning Apixaban (Eliquis) 5 mg PO BID [facility] Bisacodyl (Dulcolax) 5 mg PO DAILY PRN PRN PRN Reason: Constipation Ciprofloxacin HCl (Cipro) 500 mg PO BID [facility] Diltiazem HCl (Cardizem Cd) 180 mg PO DAILY [facility] Famotidine (Pepcid) 20 mg PO BID [facility] Last Admin: 04/29/18 11:01 Dose: 20 mg Magnesium Hydroxide (Milk Of Magnesia) 30 ml PO DAILY PRN PRN Reason: Constipation Metformin HCl (Glucophage) 500 mg PO DAILY [facility] Non-Formulary Medication (Ubidecarenone [Co Q-10]) 200 mg PO DAILY [facility] Ondansetron HCl (Zofran) 4 mg IV Q8H PRN PRN PRN Reason: Nausea Last Admin: 04/29/18 03:34 Dose: 4 mg Oxycodone HCl (Oxyir) 5 mg PO Q4H PRN PRN PRN Reason: Moderate Pain (pain scale 4-5) Last Admin: 04/29/18 08:09 Dose: 5 mg Pravastatin Sodium (Pravachol) 40 mg PO QHS [facility] Senna/Docusate Sodium (Senokot-S, Anna-Colace) 2 tablet PO BID [facility] Last Admin: 04/29/18 11:02 Dose: 2 tablet Sodium Chloride () 5 - 30 ml IV UD PRN PRN Reason: SALINE FLUSH Last Admin: 04/29/18 03:34 Dose: 10 ml Valsartan (Diovan) 160 mg PO DAILY [facility] Zolpidem Tartrate (Ambien (Generic)) 5 mg PO QHS PRN PRN PRN Reason: INSOMNIA Medical Necessity - Tobacco Use Smoking Status: Never smoker Tobacco Use: Non-smoker Assessment/Plan All Active Problems Recurrent nephrolithiasis (Acute) Pyelonephritis (Acute) Adrenal mass, left (Acute) Hydronephrosis of left kidney (Acute) Left ureteral calculus (Acute) 1.Acute recurrent nephrolithiasis. Patient is clinically improving. Status post cystoscopy left stent placement. Per urologist patient will follow up in a week's time for left ESWL 2.Acute pyelonephritis Associated with nephrolithiasis. Urine culture is negative Blood culture is pending. Following clinical improvement with no nausea or vomiting tobramycin and Ceftriaxone has been discontinued. IVF discontinued. Cipro p.o. started Patient is still taking clear liquids. Advance diet as tolerated. 3.Persistent controlled A. fib Following resolution of hematuria shared decision to resume Eliquis. 4.Type 2 diabetes A1c on 04/27/18 was 6.5. We will resume home metformin; and discontinue inpatient correction insulin that patient has not required. 5. Adrenal Incidentaloma Plasma catecholamines and am cortisol pending Patient counselled to follow up with PCP for clinically monitoring 6.HTN Chronic Vitals per unit routine Cardizem and Valsartan ordered. 7.DVT prophylaxis SCD Eliquis to be resumed 04/29/2018 2100 Disposition: Because she was very tired she requested to stay at the hospital for another day. Patient can likely be discharged on 04/30/2018. Continue po antibiotics upon discharge. Urologist wants to see patient after discharge for a possible ESWL. Code Visit Inpatient E&M: 11899 Subs Hosp L2
--- NOTE | 2018-04-29 18:45 | PN_ITS ---
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 She reports excessive urination. She has a poor appetite. She denies nausea or vomiting. She denies any chills. She denies hematuria or pain in her left flank. Vitals/I&O's: Vital Signs Temp Pulse Resp BP Pulse Ox 99.0 F 83 18 108/65 94 04/29/18 15:55 04/29/18 16:06 04/29/18 15:55 04/29/18 15:55 04/29/18 15:55 Oxygen Flow Rate (L/min) 3 Oxygen Delivery Method Room Air Weight: 121.3 kg Body Mass Index (BMI) 45.8 Intake and Output for Last 24 Hours 04/27/18 04/28/18 04/29/18 23:59 23:59 23:59 Intake Total 2100 / 2100 3706 / 3706 1071 / 1071 Output Total 400 / 400 1200 / 1200 700 / 700 Balance 1700 / 1700 2506 / 2506 371 / 371 General: Alert HEENT: Atraumatic, PERRLA, EOMI, Normocephalic Neck: Supple, No JVD, Negative Carotid Bruits Lungs: Clear to auscultation, Normal air movement Cardiovascular: Irregular Rate Abdomen: Bowel Sounds Present, Non Tender, Non-Distended Extremities: No edema, Capillary Refill Less than 3 Seconds Skin: No rashes, No breakdown Musculoskeletal: No Tenderness to Palpation of Joints or Extremities Neurological: Cranial nerves II-XII grossly intact, Unsteady Gait Psych/Mental Status: Normal Affect, Appropriate Microbiology Past 72 Hours 04/28/18 05:10 Urine, Clean Catch Urine Culture - Preliminary Culture exhibits no growth. Laboratory Results 04/28/18 10:50: Cortisol 30.70 H 04/28/18 22:17: POC Glucose 135 H 04/29/18 05:15: WBC 9.3, RBC 4.13 L, Hgb 12.4, Hct 37.6, MCV 91.0, MCH 30.0, MCHC 33.0, RDW 14.3, RDW Differential 47.2 H, Plt Count 141 L, MPV 11.8 04/29/18 05:15: Sodium 139, Potassium 3.7, Chloride 108 H, Carbon Dioxide 23.0, Anion Gap 8, BUN 13, Creatinine 0.55, Estim Creat Clear Calc 46.50, Est GFR ( MDRD) Af Amer 142, Est GFR (MDRD) Non-Af 117, BUN/Creatinine Ratio 23.8 H, Glucose 114 H, Calcium 8.0 L 04/29/18 07:01: POC Glucose 115 H 04/29/18 11:01: POC Glucose 123 H 04/29/18 17:03: POC Glucose 106 Current Medications Acetaminophen (Tylenol) 650 mg PO Q6H PRN PRN PRN Reason: Mild Pain (scale 0-3)/T>100.7 Last Admin: 04/28/18 09:31 Dose: 650 mg Al Hydroxide/Mg Hydroxide (Mylanta Ii) 30 ml PO Q6H PRN PRN PRN Reason: Gastric Burning Apixaban (Eliquis) 5 mg PO BID [facility] Bisacodyl (Dulcolax) 5 mg PO DAILY PRN PRN PRN Reason: Constipation Ciprofloxacin HCl (Cipro) 500 mg PO BID [facility] Diltiazem HCl (Cardizem Cd) 180 mg PO DAILY [facility] Famotidine (Pepcid) 20 mg PO BID [facility] Last Admin: 04/29/18 11:01 Dose: 20 mg Magnesium Hydroxide (Milk Of Magnesia) 30 ml PO DAILY PRN PRN Reason: Constipation Metformin HCl (Glucophage) 500 mg PO DAILY [facility] Non-Formulary Medication (Ubidecarenone [Co Q-10]) 200 mg PO DAILY [facility] Ondansetron HCl (Zofran) 4 mg IV Q8H PRN PRN PRN Reason: Nausea Last Admin: 04/29/18 03:34 Dose: 4 mg Oxycodone HCl (Oxyir) 5 mg PO Q4H PRN PRN PRN Reason: Moderate Pain (pain scale 4-5) Last Admin: 04/29/18 08:09 Dose: 5 mg Pravastatin Sodium (Pravachol) 40 mg PO QHS [facility] Senna/Docusate Sodium (Senokot-S, Anna-Colace) 2 tablet PO BID [facility] Last Admin: 04/29/18 11:02 Dose: 2 tablet Sodium Chloride () 5 - 30 ml IV UD PRN PRN Reason: SALINE FLUSH Last Admin: 04/29/18 03:34 Dose: 10 ml Valsartan (Diovan) 160 mg PO DAILY [facility] Zolpidem Tartrate (Ambien (Generic)) 5 mg PO QHS PRN PRN PRN Reason: INSOMNIA Medical Necessity - Tobacco Use Smoking Status: Never smoker Tobacco Use: Non-smoker Assessment/Plan All Active Problems Recurrent nephrolithiasis (Acute) Pyelonephritis (Acute) Adrenal mass, left (Acute) Hydronephrosis of left kidney (Acute) Left ureteral calculus (Acute) 1.Acute recurrent nephrolithiasis. Patient is clinically improving. Status post cystoscopy left stent placement. Per urologist patient will follow up in a week's time for left ESWL 2.Acute pyelonephritis Associated with nephrolithiasis. Urine culture is negative Blood culture is pending. Following clinical improvement with no nausea or vomiting tobramycin and Ceftriaxone has been discontinued. IVF discontinued. Cipro p.o. started Patient is still taking clear liquids. Advance diet as tolerated. 3.Persistent controlled A. fib Following resolution of hematuria shared decision to resume Eliquis. 4.Type 2 diabetes A1c on 04/27/18 was 6.5. We will resume home metformin; and discontinue inpatient correction insulin that patient has not required. 5. Adrenal Incidentaloma Plasma catecholamines and am cortisol pending Patient counselled to follow up with PCP for clinically monitoring 6.HTN Chronic Vitals per unit routine Cardizem and Valsartan ordered. 7.DVT prophylaxis SCD Eliquis to be resumed 04/29/2018 2100 Disposition: Because she was very tired she requested to stay at the hospital for another day. Patient can likely be discharged on 04/30/2018. Continue po antibiotics upon discharge. Urologist wants to see patient after discharge for a possible ESWL. Code Visit Inpatient E&M: 59674 Subs Hosp L2
[2018-04-29] MEDS: Ciprofloxacin 500 MG Tablet PO (23:04)
[2018-04-29] MEDS: Pravastatin 40 MG Tablet PO (23:04)
[2018-04-29] MEDS: APIXABAN 5 MG TABLET PO (23:04)
[2018-04-29 23:16] LABS: Bedside Glucose 91 mg/dL (70-110)
[2018-04-30 03:00] VITALS: PULSE 86
[2018-04-30 04:00] VITALS: BP 140/71; PULSE 84; RESP 16; TEMP 37.2; O2SAT 95
[2018-04-30 06:48] VITALS: O2SAT 94
[2018-04-30 07:23] VITALS: PULSE 85
[2018-04-30 07:25] LABS: Bedside Glucose 91 mg/dL (70-110)
--- NOTE | 2018-04-30 09:31 | PCM.DC ---
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 Call your doctor if you observe: Fever of 101 or Higher, Inability to urinate Additional Instructions: Follow with PCP for additional pending and renal test including epinephrine, norepinephrine. If there is further concern of elevated cortisol hormone, can do cosyntropin test. Tylenol [id number] 500 mg every 4 hourly as needed for pain Allergies/Adverse Reactions: Allergies No Known Allergies Allergy (Verified 04/27/18 13:15) Medications to take at Discharge Apixaban [Eliquis] 5 mg PO BID 04/27/18 Diltiazem HCl [Cartia Xt] 180 mg PO DAILY 04/27/18 Metformin HCl 500 mg PO DAILY 04/27/18 Pravastatin [Pravachol] 40 mg PO QHS 04/27/18 Ubidecarenone [Co Q-10] 200 mg PO DAILY 04/27/18 Valsartan [Diovan] 160 mg PO DAILY 04/27/18 Ciprofloxacin [Cipro] 500 mg PO BID #14 tab 04/30/18 The following prescriptions were given: Ciprofloxacin [Cipro] 500 mg PO BID #14 tab Primary Care Physician: Toño Hooker MD [Primary Care Provider] - Please follow up with your Primary Care Physician in: in 1-2 weeks Test Results: Follow with PCP for additional pending and renal test including epinephrine, norepinephrine. If there is further concern of elevated cortisol hormone, can do cosyntropin test. Please Follow Up With: Emery Webb MD When: in 1 week for ESBL for let ureteropelvic stone
--- NOTE | 2018-04-30 09:35 | DCINST_ITS ---
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 Call your doctor if you observe: Fever of 101 or Higher, Inability to urinate Additional Instructions: Follow with PCP for additional pending and renal test including epinephrine, norepinephrine. If there is further concern of elevated cortisol hormone, can do cosyntropin test. Tylenol [id number] 500 mg every 4 hourly as needed for pain Allergies/Adverse Reactions: Allergies No Known Allergies Allergy (Verified 04/27/18 13:15) Medications to take at Discharge Apixaban [Eliquis] 5 mg PO BID 04/27/18 Diltiazem HCl [Cartia Xt] 180 mg PO DAILY 04/27/18 Metformin HCl 500 mg PO DAILY 04/27/18 Pravastatin [Pravachol] 40 mg PO QHS 04/27/18 Ubidecarenone [Co Q-10] 200 mg PO DAILY 04/27/18 Valsartan [Diovan] 160 mg PO DAILY 04/27/18 Ciprofloxacin [Cipro] 500 mg PO BID #14 tab 04/30/18 The following prescriptions were given: Ciprofloxacin [Cipro] 500 mg PO BID #14 tab Primary Care Physician: Toño Hooker MD [Primary Care Provider] - Please follow up with your Primary Care Physician in: in 1-2 weeks Test Results: Follow with PCP for additional pending and renal test including epinephrine, norepinephrine. If there is further concern of elevated cortisol hormone, can do cosyntropin test. Please Follow Up With: Emery Webb MD When: in 1 week for ESBL for let ureteropelvic stone
--- NOTE | 2018-04-30 09:35 | DS.PCM_ITS ---
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 Hydronephrosis of left kidney (Acute) Left ureteral calculus (Acute) Date of Admission: 04/27/18 Date of Discharge: 04/30/18 - Primary Discharge Diagnosis Active and Suspected Problems Acute left pyelonephritis complicated with left hydronephrosis secondary to left UP junction stone Acute on recurrent nephrolithiasis, 6.4 cm calculus at the left ureteropelvic junction status post ureteric stone Incidental left adrenal mass 2.1 cm - Secondary Discharge Diagnosis Chronic Problems HTN (hypertension) (Chronic) Type 2 diabetes mellitus (Chronic) Morbid obesity with BMI of 40.0-44.9, adult (Chronic) Hyperlipidemia (Chronic) Atrial fibrillation (Chronic) Cholelithiasis (Chronic) History of colon polyps (Chronic) benign, last colonoscopy in 2002 Hospital Course and Treatment Summary of Care Provided: The patient is a 67 year old F with a past medical history of hypertension, diabetes mellitus type 2, atrial fibrillation, chronic anticoagulation with Eliquis, nephrolithiasis, hyperlipidemia and morbid obesity who presented to the emergency department at [facility] on 05-13 complaining of left flank pain and left lateral abdominal pain that started on 04/26/2018 at approximately 4 PM. She denied hematuria. She complained of fever, chills, sweats, nausea and vomiting in addition to the pain. CT scan of the abdomen and pelvis done in the emergency room showed left perinephric stranding with a mild degree of left hydronephrosis due to a 6.4 mm calculus at the left UP junction. Coincidental findings included a 2.1 cm left adrenal mass, a small hiatal hernia, steatosis, multiple gallstones and diffuse atherosclerotic calcification of the abdominal aorta and its major visceral branches without a demonstrated aneurysm. Significant lab included an elevated white blood cell count at 15.1 with 86% neutrophils. Hemoglobin and platelets were within normal limits. Electrolytes were within normal limits and the BUN was 21 with a creatinine of 0.94. UA was positive for nitrite and had 50-100 WBCs per high- power field and 25-50 RBCs. She was given 1 g of ceftriaxone in the emergency room and sent to surgery for Stent placement by Dr. Webb. Patient had cystoscopy can left retrograde stent placed. She is advised to follow-up in office next week for ESWL. Later on, the patient was admitted on PCU. She had left flank pain secondary to ureteric stent after that. Her pain was controlled. She does not take narcotic at home her pain was relieved with morphine. Urine culture shows no growth. Kidney function within normal limit. No leukocytosis. Patient was discharged on Cipro for 7 more days to complete all total of 10 days of antibiotics and follow-up with Dr. Webb next week for ESWL. Currently she is not in pain and wants to go home and she is good with Tylenol [id number] as needed for pain. As mentioned above, there was incidental finding of 2.1 cm left adrenal mass for which an adrenal hormones were done. Cortisol hormone is 30.7 and rest dopamine, epinephrine and normal diffusion technique. I think her cortisol may be elevated because of his stress from left ureteric colic pain secondary to stone and pyelonephritis. Follow with PCP for rest of the pending blood work of hormones. When she is on baseline she might need low-dose dexamethasone suppression test or ACTH level or cosyntropin test to further assess her adrenal hormone level depending upon her symptoms. I advised her to follow with PCP. Discharge medication reconciliation done. Follow-up instructions completed. Total time spent, exact 35 minutes on discharge meds reconciliation, examination , review of imaging and blood test and discussion with the patient on follow-up instructions. Discharge Activity: May not drive while taking narcotic pain medications. Call your doctor if you observe: Fever of 101 or Higher, Inability to urinate Home Medications: Medications to take at Discharge Apixaban [Eliquis] 5 mg PO BID 04/27/18 Diltiazem HCl [Cartia Xt] 180 mg PO DAILY 04/27/18 Metformin HCl 500 mg PO DAILY 04/27/18 Pravastatin [Pravachol] 40 mg PO QHS 04/27/18 Ubidecarenone [Co Q-10] 200 mg PO DAILY 04/27/18 Valsartan [Diovan] 160 mg PO DAILY 04/27/18 Ciprofloxacin [Cipro] 500 mg PO BID #14 tab 04/30/18 Following Prescrptions Were Given to Patient: Ciprofloxacin [Cipro] 500 mg PO BID #14 tab Primary Care Physician: Toño Hooker MD [Primary Care Provider] - Please follow up with your Primary Care Physician in: in 1-2 weeks Please Follow Up With: Emery Webb MD When: in 1 week for ESBL for let ureteropelvic stone Medical Necessity - Tobacco Use Smoking Status: Never smoker Tobacco Use: Non-smoker Meaningful Use Info Meaningful Use Diagnoses (Choose all that apply): None applicable Code Visit Inpatient E&M: 91781 Disch Hosp
[2018-04-30 10:08] VITALS: BP 134/81; PULSE 85; RESP 18; TEMP 36.9; O2SAT 95
[2018-04-30] MEDS: dilTIAZem CD 180 MG Capsule PO (10:10)
[2018-04-30] MEDS: Famotidine 20 MG Tablet PO (10:10)
[2018-04-30] MEDS: APIXABAN 5 MG TABLET PO (10:10)
[2018-04-30] MEDS: Ciprofloxacin 500 MG Tablet PO (10:10)
[2018-05-05 09:09] LABS: Epinephrine, Pl 33 pg/mL (0-62); Norepinephrine, Pl 210 pg/mL (0-874)
[2018-05-06 11:18] LABS: Dopamine, Pl <30 pg/mL (0-48)
== END 2018-04-30 12:29 | disposition home or self-care (01) | DRG 690 ==
LOC: ED 15:49 → SDC 15:57 → PCU 04-28 04:38 → MS3 04-30 07:03 → PCU 04-30 07:03
PROVIDERS: Hospitalist; Urology; Admitting Provider Internal Medicine; Emergency Provider Emergency Medicine; Family Provider Family Medicine; PCP Family Medicine; Visit Provider Internal Medicine
PROC: 0T778DZ Dilation of Left Ureter with Intraluminal Device, Via Natural or Artificial Opening Endoscopic (ICD-10-PCS; principal; 2018-04-27 18:10)
DX: N13.6 Pyonephrosis (principal); Z68.42 Body mass index [BMI] 45.0-49.9, adult; E11.9 Type 2 diabetes mellitus without complications; N10 Acute pyelonephritis; E78.5 Hyperlipidemia, unspecified; E66.01 Morbid (severe) obesity due to excess calories; I10 Essential (primary) hypertension; Z79.84 Long term (current) use of oral hypoglycemic drugs; D35.02 Benign neoplasm of left adrenal gland; I48.91 Unspecified atrial fibrillation; Z86.010 Personal history of colon polyps; K80.20 Calculus of gallbladder without cholecystitis without obstruction
CPT/HCPCS: 36415; 74176; 76000; 80048; 80053; 80061; 81001; 82384; 82533; 82962; 83036; 83735; 84100; 85025; 85027; 87040; 87086; 97161; 97166; 97802; 99285; J7030; J7120; A4216; C1769; C2617; J2405

== ENCOUNTER 2018-05-08 09:50 | Day surgery (SDC) | payer MEDICARE, OTHER, SELFPAY ==
--- NOTE | 2018-05-08 09:59 | RAD_ITS ---
STUDY: X-RAY - ABDOMEN/PELVIS REASON FOR EXAM: Female, 67 years old. Preoperative evaluation for ESWL. TECHNIQUE: Single AP view of the abdomen / pelvis. COMPARISON: None. FINDINGS: Gallstones are seen in the right upper quadrant. There is an unremarkable bowel gas pattern. A left-sided double-J stent catheter is seen with the proximal tip in the renal pelvis and the distal tip in the bladder. I suspect a 6.4 mm calculus in the left renal pelvis. There are calcified phleboliths in the pelvis. Bilateral tubal ligation. There are diffuse degenerative changes of the visualized lumbar spine. RAD/Abdomen Single View IMPRESSION: Left-sided double-J stent catheter. I suspect a 6.4 mm calculus in the left renal pelvis. Electronically Signed: Donaldo Gambino MD at 10:23 EDT Tel [phone], Service support ,
[2018-05-08 10:41] VITALS: BP 140/84; PULSE 75; RESP 16; TEMP 36.8; O2SAT 96; BMI 44.6
[2018-05-08 10:50] LABS: Bedside Glucose 112 mg/dL (70-110)
[2018-05-08] MEDS: Cefazolin 2 GM in 0.9% Normal Saline 100 ML IV (12:42)
--- NOTE | 2018-05-08 13:48 | DCINST_ITS ---
Discharge Diet: Light diet - advance as tolerated Discharge Activity: Return to Normal Activity Allergies/Adverse Reactions: Allergies No Known Allergies Allergy (Verified 05/01/18 13:27) Medications to take at Discharge Apixaban [Eliquis] 5 mg PO BID 04/27/18 Diltiazem HCl [Cartia Xt] 180 mg PO DAILY 04/27/18 Metformin HCl 500 mg PO DAILY 04/27/18 Pravastatin [Pravachol] 40 mg PO QHS 04/27/18 Valsartan [Diovan] 160 mg PO DAILY 04/27/18 Ciprofloxacin [Cipro] 500 mg PO BID #14 tab 04/30/18 Primary Care Physician: Toño Hooker MD [Primary Care Provider] - Test Results: Test results from this visit will be discussed in further detail at your follow- up appointment, if applicable. Please Follow Up With: Emery Webb MD When: Next with an Xray, call office of appt.
--- NOTE | 2018-05-08 13:48 | PCM.OPRPT ---
Report of Operation Date of Procedure: 05/08/18 Pre-Operative Diagnosis: Left proximal ureteral calculi status post stent Post-Operative Diagnosis: Same Surgery/Procedure Performed:: Left extracorporeal shockwave lithotripsy Description of Surgical Findings:: 67-year-old female with obstructing proximal left ureteral calculi status post stent placement she now presents for shockwave treatment of the stone. Next line 67-year-old female taken back to the operating room at the smooth induction of general anesthesia she was placed supine on the table we then located the stone in the F2 focal point of the lithotripter machine and delivered 3000 shockwaves to the stone at a rate of 90 power up to 7 at the end of the treatment cycle we could still see stone fragments there so we gave her 5 more thousand shockwaves power up to 8 and a rate of 90 and the stone did pretty changed a lot still could see fragments but I think it broken up. At this point left the stent in place we will see her next week with an x-ray and if this do not look like it is broken up will remove the stent. Drains: stent - Admit VTE Documentation VTE Present on Admission: No VTE Mechan Device Prophylaxis: SCD's VTE Pharm Prophylaxis ordered?: No Reason prophylaxis not ordered:: Treatment Not Indicated
[2018-05-08 13:56] VITALS: BP 140/84; BP 164/104; PULSE 87; RESP 15; TEMP 36.3; O2SAT 98
[2018-05-08 14:00] VITALS: BP 140/84; BP 168/83; PULSE 76; RESP 16; O2SAT 100
[2018-05-08 14:15] VITALS: BP 139/80; BP 140/84; PULSE 77; RESP 16; O2SAT 96
[2018-05-08 14:30] VITALS: BP 136/70; BP 140/84; PULSE 77; RESP 16; TEMP 36.8; O2SAT 99
[2018-05-08 14:56] VITALS: BP 130/68; BP 140/84; PULSE 88; RESP 18; TEMP 36.2; O2SAT 95
[2018-05-08 15:10] LABS: Bedside Glucose 74 mg/dL (70-110)
== END 2018-05-08 15:02 | disposition home or self-care (01) ==
LOC: SDC 09:51 → AC 09:58
PROVIDERS: Family Provider Family Medicine; PCP Family Medicine; Visit Provider Urology
PROC: (CPT 50590; principal; 2018-05-08 11:35)
DX: N20.1 Calculus of ureter (principal); I10 Essential (primary) hypertension; E11.9 Type 2 diabetes mellitus without complications; E66.01 Morbid (severe) obesity due to excess calories; E78.5 Hyperlipidemia, unspecified; I48.2 Chronic atrial fibrillation; Z68.41 Body mass index [BMI] 40.0-44.9, adult
CPT/HCPCS: 50590; 74018; 82962; J7120; J2405

== ENCOUNTER → 2018-05-14 09:18 | Outpatient (CLI) | payer MEDICARE, OTHER, SELFPAY ==
--- NOTE | 2018-05-14 09:25 | RAD_ITS ---
STUDY: X-RAY - ABDOMEN/PELVIS REASON FOR EXAM: Female, 67 years old. Kidney pain TECHNIQUE: 1 view COMPARISON: May 08, 2018 FINDINGS: A left-sided double pigtail stent is in place. The calculus projecting over the proximal end of the stent and in the last examination of May 08, 2018 is normal excretion. Tubal ligation clips are also seen in the pelvis. There are 2 large gallstones and degenerative changes of the lower thoracic and upper lumbar cervical spine. No bowel distention or free intraperitoneal air. RAD/Abdomen Single View IMPRESSION: A left-sided double pigtail ureteral stent in place. There had been a 4.8 mm calculus in the proximal end of the left ureter projecting over the double-pigtail stent. The calculus is not seen in today's study. 2 large gallstones Electronically Signed: Ross Lunsford, at 4:35 EDT Tel , Service support ,
== END ==
PROVIDERS: Family Provider Family Medicine; PCP Family Medicine; Visit Provider Urology
DX: N20.0 Calculus of kidney (principal)
CPT/HCPCS: 74018

== ENCOUNTER → 2018-09-07 13:43 | Outpatient (CLI) | payer MEDICARE, OTHER, SELFPAY ==
--- NOTE | 2018-09-07 13:46 | RAD_ITS ---
STUDY: X-RAY - ABDOMEN/PELVIS REASON FOR EXAM: Female, 68 years old. Follow-up left kidney stone. TECHNIQUE: Two AP supine views of the abdomen and pelvis. COMPARISON: Abdomen, May 14, 2018. FINDINGS: Normal visualized lung bases. There is an unremarkable bowel gas pattern. There is no demonstrated free abdominal air. The visualized liver, spleen and kidneys are grossly normal in size and morphology. Again seen are large laminated gallstones within the gallbladder. The left ureteral stent is no longer present. There are no visualized renal calculi. There is no visualized ureteral calculi. Again seen are stable phleboliths in the pelvis as well as tubal ligation clips. There are diffuse degenerative changes of the visualized lumbar spine. RAD/Abdomen Single View IMPRESSION: Removal left ureteral stent. There is no renal calculi or other interval change. Electronically Signed: Hema Harper DO at 19:26 EST Tel [phone], Service support ,
== END ==
PROVIDERS: Family Provider Family Medicine; PCP Family Medicine; Referring Provider Urology; Visit Provider Urology
DX: N20.0 Calculus of kidney (principal)
CPT/HCPCS: 74018

== ENCOUNTER 2024-05-27 15:00 | Outpatient (RCR) | payer MEDICARE, SELFPAY ==
[2024-05-06 14:17] VITALS: BP 161/62; PULSE 85; RESP 18; TEMP 36.3; BMI 44.6
--- NOTE | 2024-05-07 07:29 | PCM.WC.HP ---
History of Present Illness Date of Service: 05/06/24 Chief Complaint: BLE edema History of Wound: Ann Manzo is a 73 y/o female who presents to the wound healing center for evaluation and management of bilateral lower extremity edema as referred by Dr. Pwoell. She reports that Dr. Powell and her PCP feel that she has lymphedema and have referred her here for further management. She reports longstanding history of bilateral lower extremity edema which has become worse and developed associated skin blistering and ulcerations over the last 7 months or so. At present, she does not have any active open wounds. However, she shares pictures from the last few months in which she clearly has clusters of fluid-filled blisters and subsequent ulceration on her anterior distal shins. She has been working with her PCP to manage her edema. She has been diligent is adjusting her diet by reducing sodium intake and monitoring her water intake. She has been working on losing weight. She is very diligent in elevating her legs at all times of rest and estimates she spends 5 hours a day elevating her legs. She does try to participate in regular exercise such as walking and water aerobics. Despite these efforts she does have significant persistent edema and associated symptoms such as chronic skin thickening and discoloration. She has not been wearing much compression as she has really struggled to find compression stockings that fit and that she is able to get on. [facility] Home Medications ?Medication ?Instructions ?Recorded ?Last Taken ?Type apixaban 5 mg tablet (Eliquis) 5 mg PO BID blood thinner 04/27/18 05/03/18 History diltiazem HCl 180 mg 180 mg PO DAILY heart 04/27/18 05/08/18 08:00 History capsule,extended release 24 hr (Cartia XT) metformin 500 mg tablet 500 mg PO DAILY diabetes 04/27/18 04/27/18 12:00 History pravastatin 40 mg tablet 40 mg PO QHS cholesterol 04/27/18 Unknown History ciprofloxacin HCl 500 mg tablet 500 mg PO BID #14 tabs 04/30/18 Unknown Rx hydrocodone-acetaminophen 5-325mg 1 ea PO Q4H PRN PRN Pain 7 days 05/08/18 Unknown Rx 5mg-325mg #14 tabs triamcinolone acetonide 0.1 % applic topical BID 05/06/24 Unknown History topical cream Allergy/AdvReac Type Severity Reaction Status Date / Time No Known Allergies Allergy Verified 05/01/18 13:27 Social History Smoking Status: Never smoker Vital Signs Vital Signs Vital Signs: 05/06/24 14:17 Temperature 97.3 F L Temperature Source Temporal Pulse Rate 85 Respiratory Rate 18 Blood Pressure 161/62 H Blood Pressure Mean 95 Blood Pressure Source Monitor Blood Pressure Position Semi-Fowlers Blood Pressure Location Left Arm Oxygen Delivery Method Room Air Weight Weight: 260 lb Body Mass Index (BMI) 44.6 Physical Exam Const alert, oriented x3 and no apparent distress General Appearance: cooperative and comfortable HEENT normocephalic, head/scalp atraumatic, hearing grossly normal bilaterally, external ears normal and external nose normal Eyes EOMs intact bilaterally General Eye: normal appearance of both eyes Neck General: normal visual inspection and trachea midline Resp normal respiratory effort Effort and Inspection: able to speak in complete sentences Cardio regular rate and regular rhythm Extremity Extremity Narrative: Significant bilateral lower extremity edema, nonpitting (05/06) R calf 53.5 cm, R ankle 29.5 cm (05/06) L calf 51.5 cm, L ankle 29.5 cm Peripheral Pulses: Yes pulses 2+ throughout Skin Skin Narrative: Scars from prior ulcerations at the anterior L jiménez/ankle. No active open wounds. Neuro oriented x3, CN's II-XII intact bilaterally, moves all extremities and no focal motor deficits Speech: speech normal Debridement Note Debridement Note No debridement was completed: No debridement was completed today Post-Debridement Measurements and Additional Note: Post-Debridement Measurements/Treatment MATEO - Nurse 1 - General Ulcer Assessment Start: 05/06/24 14:17 Freq: Status: Active Protocol: NAVID Activity Type Activity Date Activity User E-sign Co-sign Detail Recorded Client Recorded Date Recorded By Document 05/06/24 14:17 KW ; 05/06/24 14:19 KW Edit Result 05/06/24 14:17 KW (1) ; 05/06/24 14:36 KW (1) Right - Posterior Tibial Doppler => Monophasic - Dorsalis Pedis Doppler => Monophasic - Hair Growth on Legs => Yes - Hair Growth on Toes => Yes - Temperature of Extremity => Cool - Capillary Refill => Less than 3 => Seconds Left - Posterior Tibial Doppler => Monophasic - Dorsalis Pedis Doppler => Multiphasic - Hair Growth on Legs => Yes - Hair Growth on Toes => No - Temperature of Extremity => Cool - Capillary Refill => Less than 3 => Seconds Preferred language => Polish Able to Read => Yes Able to Write => Yes Communication Tools => None Caregiver Communication Skills => No Impairment Impairment Right Hearing Abillity => Normal Left Hearing Abillity => Normal Visual Assistive Devices => Glasses Preferences => Verbal,Written, => Demonstration Barriers to Learning => None Readiness To Learn => Excellent Willingness to Engage in Self Management => High Activies Readiness to Engage in Self Management => High Activities Anxiety Level => Calm Cooperation => Cooperative Perception => Coherent Interest in Health Problem => Asks Questions Education Importance => Acknowledges Need Does Patient Smoke tobacco or other => No substances Smoking Status => Never smoker Is Patient Diabetic => Yes Recent Decline in Ability to Perform => Denies Any => Declines Cultural/Shinto Needs that may affect => No Treatment Plan Would you allow our hospital e marketing specialist to => No meet you for the purpose of spiritual/ emotional support? Public Service Officer to contact place of amish => No 05/06/24 14:17 - Today's Visit Information Type of service Initial Visit Arrival Mode Ambulatory Patient Identification Verified (Name & Yes ) Height and Weight Height 5 ft 4 in Weight 260 lb Weight in Pounds 260.0 lbs Weight Measurement Method Estimated by Patient Body Mass Index (BMI) 44.6 BMI Classification Obese BSA - Tamiko 2.19 Vital Signs Temperature (97.8 F-99.1 F) 97.3 F L Temperature Source Temporal Pulse Rate (60-100) 85 Pulse Location Monitor Respiratory Rate (12-18) 18 Respiratory rate source Observation Oxygen Delivery Method Room Air Blood Pressure (90/60-120/80) 161/62 H Blood Pressure Mean 95 Source Monitor Position Semi-Fowlers Blood Pressure Location Left Arm History Since Last Visit- (Skip if this is Patient's initial visit) Left Footwear Regular Shoe Right Footwear Regular Shoe Pain Scale: 0-10 Numeric Is Patient Pain Free? Yes Lower Extremity Assessment/ Foot Assessment/ Toe Nail Assessment Right -Posterior Tibial Doppler Monophasic -Dorsalis Pedis Doppler Monophasic -Hair Growth on Legs Yes -Hair Growth on Toes Yes -Temperature of Extremity Cool -Capillary Refill Less than 3 Seconds Left -Posterior Tibial Doppler Monophasic -Dorsalis Pedis Doppler Multiphasic -Hair Growth on Legs Yes -Hair Growth on Toes No -Temperature of Extremity Cool -Capillary Refill Less than 3 Seconds Communication Assessment Preferred language Polish Able to Read Yes Able to Write Yes Communication Tools None Caregiver Communication Skills No Impairment Impairment Right Hearing Abillity Normal Left Hearing Abillity Normal Visual Assistive Devices Glasses Teaching Assessment Preferences Verbal,Written, Demonstration Barriers to Learning None Readiness To Learn Excellent Willingness to Engage in Self Management High Activies Readiness to Engage in Self Management High Activities Anxiety Level Calm Cooperation Cooperative Perception Coherent Interest in Health Problem Asks Questions Education Importance Acknowledges Need Does Patient Smoke tobacco or other No substances Smoking Status Never smoker Is Patient Diabetic Yes Functional Assessment Recent Decline in Ability to Perform Denies Any Declines Culture/Shinto/Public Service Officer Cultural/Shinto Needs that may affect No Treatment Plan Would you allow our hospital e marketing specialist to No meet you for the purpose of spiritual/ emotional support? Public Service Officer to contact place of amish No WC - Nurse 2 - General Ulcer CM Notes Start: 05/06/24 14:17 Freq: Status: Active Protocol: Activity Type Activity Date Activity User E-sign Co-sign Detail Recorded Client Recorded Date Recorded By Document 05/06/24 14:45 GM 05/06/24 15:04 GM 05/06/24 14:45 Pain Scale: 0-10 Numeric Is Patient Pain Free? Yes - Nurse 3 - General Ulcer D/C NN Start: 05/06/24 14:17 Freq: Status: Active Protocol: Activity Type Activity Date Activity User E-sign Co-sign Detail Recorded Client Recorded Date Recorded By Document 05/06/24 15:17 KW ; 05/06/24 15:18 KW 05/06/24 15:17 Wound Care Center Nurse 3 Right -Tubular Bandage Single Layer -Size of Tubigrip Used Size F -Size F ($) 1 Left -Tubular Bandage Single Layer -Size of Tubigrip Used Size F -Size F ($) 1 Pain Scale: 0-10 Numeric Is Patient Pain Free? Yes WC - Visit Discharge Discharge Condition Stable Ambulatory Status Ambulatory Transportation Private Auto Medication Reconcilliation completed & No provided to patient/care provider Clinical Summary of Care Provided Yes Charges/Coding Visit Charges Office Visits / Consults: 44897 OV L3 New 30min Assessment/Plan Assessment/Plan (1) Lymphedema: CODE(S): I89.0 - Lymphedema, not elsewhere classified PLAN: We discussed possible etiologies of her edema including likely lymphedema and/or venous insufficiency. Will obtain a venous reflux study to evaluate for potential venous insufficiency which may be contributing and which could potentially be surgically addressed. Will initiate compression with high-strength Tubigrips for now. Will plan for measured compression stockings with assistive donning devices in the future when we feel we have reduced edema as much as possible. I also feel that she would significantly benefit from lymphedema pumps for ongoing management of her chronic edema and prevention of wound recurrence. She has already been very prudent in conservative management with leg elevation, exercise, and lifestyle modifications (weight loss, sodium restriction) with insufficient improvement in her symptoms. She will continue with these measures in addition to compression and we will continue to monitor progress. She will return to the wound center in 1 week to reassess, sooner as needed.
--- NOTE | 2024-05-12 09:44 | WC ---
PHOTO 05/06/24 LYMPHEDEMA RIGHT
[2024-05-13 13:40] VITALS: BP 126/61; PULSE 78; RESP 14; TEMP 36.3; BMI 44.6
--- NOTE | 2024-05-13 14:30 | VDLE_ITS ---
Reason For Study: BLE Edema RIGHT LEFT CFV is compressible, spontaneous, phasic, CFV is compressible, spontaneous, phasic, competent and demonstrates normal competent, and demonstrates normal augmentation. augmentation. FV is compressible, spontaneous, phasic, FV is compressible, spontaneous, phasic, competent and demonstrates normal competent and demonstrates normal augmentation. augmentation. POP V is compressible, spontaneous, phasic, POP V is compressible, spontaneous, phasic, competent and demonstrates normal competent and demonstrates normal augmentation. augmentation. T/P Trunk is compressible. T/P Trunk is compressible. PTV is compressible. PTV is compressible. RT PerV is compressible. LT PerV is compressible. SFJ is INCOMPETENT and measures 0.80 cm. SFJ is INCOMPETENT and measures 0.76 cm. ASV proximal thigh is INCOMPETENT for greater ASV proximal thigh is INCOMPETENT for greater than 0.5 seconds and measures 0.65 x 0.66 cm. than 0.5 seconds and measures 0.60 x 0.51 cm. ASV mid calf is INCOMPETENT for greater than ASV proximal calf is INCOMPETENT for greater 0.5 seconds and measures 0.50 x 0.55 cm. than 0.5 seconds and measures 0.43 x 0.39 cm. GSV proximal thigh measures 0.70 x 0.69 cm. GSV proximal thigh measures 0.57 x 0.53 cm. GSV at knee measures 0.50 x 0.49 cm. GSV at knee measures 0.34 x 0.31 cm. GSV is competent throughout. GSV is competent throughout. SSV proximal calf is competent and measures SSV proximal calf is competent and measures 0.29 x 0.26 cm. 0.30 x 0.32 cm. Procedure Exam performed in department. This is a venous duplex using B-mode, color flow and spectral Doppler. The exam was diagnostic. VL/Venous Duplex US - Gage Extrem Interpretation Summary Deep veins of the lower extremities are bilaterally patent and compressible seg mentally. There is no evidence of deep vein thrombosis on either side. Valvular competence appears in tact within the proximal deep venous systems bilaterally. The great saphenous veins appear bila terally patent and compressible segmentally. Sapheno-femoral junctions are bilaterally incompetent . Valvular competence appears to be intact segmentally within the great saphenous veins bi laterally. Small saphenous veins are patent and competent bilaterally. The accessory saphenous v ein in the right proximal thigh is incompetent. The accessory saphenous vein in the right mid-ca lf is incompetent. The accessory saphenous vein in the left proximal thigh is incompetent. The acc essory saphenous vein in the left proximal calf is incompetent. Ordering Physician: Yaritza Gorman Referring Physician: Yoli Powell Performed By: Carlitos Hartmann RVT
--- NOTE | 2024-05-13 14:56 | PCM.WC.PN ---
History of Present Illness Date of Service: 05/13/24 Chief Complaint: BLE edema History of Wound: Ann Manzo is a 73 y/o female who presents to the wound healing center for evaluation and management of bilateral lower extremity edema as referred by Dr. Powell. She reports that Dr. Powell and her PCP feel that she has lymphedema and have referred her here for further management. She reports longstanding history of bilateral lower extremity edema which has become worse and developed associated skin blistering and ulcerations over the last 7 months or so. At present, she does not have any active open wounds. However, she shares pictures from the last few months in which she clearly has clusters of fluid-filled blisters and subsequent ulceration on her anterior distal shins. She has been working with her PCP to manage her edema. She has been diligent is adjusting her diet by reducing sodium intake and monitoring her water intake. She has been working on losing weight. She is very diligent in elevating her legs at all times of rest and estimates she spends 5 hours a day elevating her legs. She does try to participate in regular exercise such as walking and water aerobics. Despite these efforts she does have significant persistent edema and associated symptoms such as chronic skin thickening and discoloration. She has not been wearing much compression as she has really struggled to find compression stockings that fit and that she is able to get on. Subjective Subjective Patient did well this week with the Tubigrips. She continues to elevate her legs as much as possible throughout the day and with regular exercise regimen. The redness at her L anterior ankle/jiménez has improved. Scabs from prior wounds have fallen off and are healed underneath. No new wounds. Objective Data Objective Data Vital Signs: Vital Signs Temp Pulse Resp BP O2 Del Method 97.4 F L 78 14 126/61 H Room Air 05/13/24 13:40 05/13/24 13:40 05/13/24 13:40 05/13/24 13:40 05/06/24 14:17 Oxygen Delivery Method Room Air Weight: 260 lb Body Mass Index (BMI) 44.6 Charges/Coding Visit Charges Office Visits / Consults: 61165 OV L3 Est 20min Physical Exam Const alert, oriented x3 and no apparent distress General Appearance: cooperative and comfortable HEENT normocephalic, head/scalp atraumatic, hearing grossly normal bilaterally, external ears normal and external nose normal Eyes EOMs intact bilaterally General Eye: normal appearance of both eyes Neck General: normal visual inspection and trachea midline Resp normal respiratory effort Effort and Inspection: able to speak in complete sentences Cardio regular rate and regular rhythm Extremity Extremity Narrative: Significant bilateral lower extremity edema, nonpitting (05/06) R calf 53.5 cm, R ankle 29.5 cm (05/06) L calf 51.5 cm, L ankle 29.5 cm Peripheral Pulses: Yes pulses 2+ throughout Skin Skin Narrative: Scars from prior ulcerations at the anterior L jiménez/ankle. No active open wounds. Neuro oriented x3, CN's II-XII intact bilaterally, moves all extremities and no focal motor deficits Speech: speech normal Debridement Note Debridement Note No debridement was completed: No debridement was completed today Post-Debridement Measurements and Additional Note: Post-Debridement Measurements/Treatment WC - Nurse 1 - General Ulcer Assessment Start: 05/06/24 14:17 Freq: Status: Active Protocol: [email or web address] Activity Type Activity Date Activity User E-sign Co-sign Detail Recorded Client Recorded Date Recorded By Document 05/06/24 14:17 KW ; 05/06/24 14:19 KW Edit Result 05/06/24 14:17 KW (1) ; 05/06/24 14:36 KW Document 05/13/24 13:40 ML [email or web address] 05/13/24 13:43 ML (1) Right - Posterior Tibial Doppler => Monophasic - Dorsalis Pedis Doppler => Monophasic - Hair Growth on Legs => Yes - Hair Growth on Toes => Yes - Temperature of Extremity => Cool - Capillary Refill => Less than 3 => Seconds Left - Posterior Tibial Doppler => Monophasic - Dorsalis Pedis Doppler => Multiphasic - Hair Growth on Legs => Yes - Hair Growth on Toes => No - Temperature of Extremity => Cool - Capillary Refill => Less than 3 => Seconds Preferred language => Macedonian Able to Read => Yes Able to Write => Yes Communication Tools => None Caregiver Communication Skills => No Impairment Impairment Right Hearing Abillity => Normal Left Hearing Abillity => Normal Visual Assistive Devices => Glasses Preferences => Verbal,Written, => Demonstration Barriers to Learning => None Readiness To Learn => Excellent Willingness to Engage in Self Management => High Activies Readiness to Engage in Self Management => High Activities Anxiety Level => Calm Cooperation => Cooperative Perception => Coherent Interest in Health Problem => Asks Questions Education Importance => Acknowledges Need Does Patient Smoke tobacco or other => No substances Smoking Status => Never smoker Is Patient Diabetic => Yes Recent Decline in Ability to Perform => Denies Any => Declines Cultural/Spiritism Needs that may affect => No Treatment Plan Would you allow our hospital precision optics technician to => No meet you for the purpose of spiritual/ emotional support? Turret Lathe Set Up Operator to contact place of episcopal => No 05/06/24 05/13/24 14:17 13:40 WC - Today's Visit Information Type of service Initial Visit Follow-up Visit (Physician/VARNISH MAKER ) Arrival Mode Ambulatory Ambulatory Transfer Assistance None Patient Identification Verified (Name & Yes Yes ) Patient Requires Transmission-Based No Precautions Height and Weight Height 5 ft 4 in Weight 260 lb Weight in Pounds 260.0 lbs Weight Measurement Method Estimated by Standing Scale Patient Body Mass Index (BMI) 44.6 44.6 BMI Classification Obese Obese BSA - Tamiko 2.19 Vital Signs Temperature (97.8 F-99.1 F) 97.3 F L 97.4 F L Temperature Source Temporal Temporal Pulse Rate (60-100) 85 78 Pulse Location Monitor Monitor Respiratory Rate (12-18) 18 14 Respiratory rate source Observation Observation Oxygen Delivery Method Room Air Blood Pressure (90/60-120/80) 161/62 H 126/61 H Blood Pressure Mean (mm Hg) 95 82 Source Monitor Monitor Position Semi-Fowlers Sitting Blood Pressure Location Left Arm Left Forearm History Since Last Visit- (Skip if this is Patient's initial visit) Have you changed medications since your No last visit? Any new allergies or adverse reactions No Had a fall/change in ADL's that may No increase risk of falls Signs or symptoms of abuse and/or No neglect since last visit Has dressing in place as prescribed Yes Has compression in place as prescribed Yes Has offloadiing in place as prescribed N/A Experienced any changes in pain level or No management Left Footwear Regular Shoe Regular Shoe Right Footwear Regular Shoe Regular Shoe Pain Scale: 0-10 Numeric Is Patient Pain Free? Yes Yes Lower Extremity Assessment/ Foot Assessment/ Toe Nail Assessment Right -Posterior Tibial Doppler Monophasic -Dorsalis Pedis Doppler Monophasic -Hair Growth on Legs Yes -Hair Growth on Toes Yes -Temperature of Extremity Cool -Capillary Refill Less than 3 Seconds Left -Posterior Tibial Doppler Monophasic -Dorsalis Pedis Doppler Multiphasic -Hair Growth on Legs Yes -Hair Growth on Toes No -Temperature of Extremity Cool -Capillary Refill Less than 3 Seconds Communication Assessment Preferred language Macedonian Able to Read Yes Able to Write Yes Communication Tools None Caregiver Communication Skills No Impairment Impairment Right Hearing Abillity Normal Left Hearing Abillity Normal Visual Assistive Devices Glasses Teaching Assessment Preferences Verbal,Written, Demonstration Barriers to Learning None Readiness To Learn Excellent Willingness to Engage in Self Management High Activies Readiness to Engage in Self Management High Activities Anxiety Level Calm Cooperation Cooperative Perception Coherent Interest in Health Problem Asks Questions Education Importance Acknowledges Need Does Patient Smoke tobacco or other No substances Smoking Status Never smoker Is Patient Diabetic Yes Functional Assessment Recent Decline in Ability to Perform Denies Any Declines Culture/Spiritism/Turret Lathe Set Up Operator Cultural/Spiritism Needs that may affect No Treatment Plan Would you allow our hospital precision optics technician to No meet you for the purpose of spiritual/ emotional support? Turret Lathe Set Up Operator to contact place of episcopal No WC - Nurse 1 - General Ulcer Measurement Start: 05/06/24 14:17 Freq: Status: Active Protocol: Activity Type Activity Date Activity User E-sign Co-sign Detail Recorded Client Recorded Date Recorded By Document 05/13/24 13:40 ML [email or web address] 05/13/24 13:43 ML 05/13/24 13:40 Wound Center Nurse 1 Lower Limb Edema Present Yes Right Calf (cm) 52 Right Ankle (cm) 30 Left Calf (cm) 51 Left Ankle (cm) 29 - Nurse 2 - General Ulcer CM Notes Start: 05/06/24 14:17 Freq: Status: Active Protocol: Activity Type Activity Date Activity User E-sign Co-sign Detail Recorded Client Recorded Date Recorded By Document 05/06/24 14:45 [facility] 05/06/24 15:04 Document 05/13/24 14:09 [facility] 05/13/24 14:09 05/06/24 05/13/24 14:45 14:09 Pain Scale: 0-10 Numeric Is Patient Pain Free? Yes Yes - Nurse 3 - General Ulcer D/C NN Start: 05/06/24 14:17 Freq: Status: Active Protocol: Activity Type Activity Date Activity User E-sign Co-sign Detail Recorded Client Recorded Date Recorded By Document 05/06/24 15:17 KW ; 05/06/24 15:18 KW Document 05/13/24 14:21 KW f 05/13/24 14:22 KW 05/06/24 05/13/24 15:17 14:21 Wound Care Center Nurse 3 Right -Tubular Bandage Single Layer -Size of Tubigrip Used Size F Size F -Size F ($) 1 Left -Tubular Bandage Single Layer -Size of Tubigrip Used Size F Size F -Size F ($) 1 Pain Scale: 0-10 Numeric Is Patient Pain Free? Yes Yes WC - Visit Discharge Discharge Condition Stable Ambulatory Status Ambulatory Transportation Private Auto Medication Reconcilliation completed & No provided to patient/care provider Clinical Summary of Care Provided Yes Assessment/Plan Assessment/Plan (1) Lymphedema: CODE(S): I89.0 - Lymphedema, not elsewhere classified PLAN: Possible etiologies of her edema include likely lymphedema and/or venous insufficiency. Will obtain a venous reflux study to evaluate for potential venous insufficiency which may be contributing and which could potentially be surgically addressed. She is having a venous reflux study later this afternoon. Will continue with compression with high-strength Tubigrips for now. Will plan for measured compression stockings with assistive donning devices in the future when we feel we have reduced edema as much as possible. I also feel that she would significantly benefit from lymphedema pumps for ongoing management of her chronic edema and prevention of wound recurrence. She has already been very prudent in conservative management with leg elevation, exercise, and lifestyle modifications (weight loss, sodium restriction) with insufficient improvement in her symptoms. She will continue with these measures in addition to compression and we will continue to monitor progress. She will return to the wound center in 2 weeks to reassess, sooner as needed.
[2024-05-27 15:14] VITALS: BP 140/77; PULSE 83; RESP 18; TEMP 36; BMI 44.6
--- NOTE | 2024-05-27 18:03 | PCM.WC.PN ---
History of Present Illness Date of Service: 05/27/24 Chief Complaint: BLE edema History of Wound: Ann Manzo is a 73 y/o female who presents to the wound healing center for evaluation and management of bilateral lower extremity edema as referred by Dr. Powell. She reports that Dr. Powell and her PCP feel that she has lymphedema and have referred her here for further management. She reports longstanding history of bilateral lower extremity edema which has become worse and developed associated skin blistering and ulcerations over the last 7 months or so. At present, she does not have any active open wounds. However, she shares pictures from the last few months in which she clearly has clusters of fluid-filled blisters and subsequent ulceration on her anterior distal shins. She has been working with her PCP to manage her edema. She has been diligent is adjusting her diet by reducing sodium intake and monitoring her water intake. She has been working on losing weight. She is very diligent in elevating her legs at all times of rest and estimates she spends 5 hours a day elevating her legs. She does try to participate in regular exercise such as walking and water aerobics. Despite these efforts she does have significant persistent edema and associated symptoms such as chronic skin thickening and discoloration. She has not been wearing much compression as she has really struggled to find compression stockings that fit and that she is able to get on. Subjective Subjective Ann returns to the wound healing center today for follow-up of her bilateral lower extremity edema. Since her last visit, she has been consistently wearing compression with high-strength Tubigrip's as directed. She has also been elevating her legs at all times of rest and participating in regular walking exercise. She has remained committed to working on weight loss as well and reports she has had slow but steady decrease in weight. Despite adhering to these conservative measures she does still have significant persistent symptoms including edema, leg heaviness. Objective Data Objective Data Vital Signs: Vital Signs Temp Pulse Resp BP O2 Del Method 96.8 F L 83 18 140/77 H Room Air 05/27/24 15:14 05/27/24 15:14 05/27/24 15:14 05/27/24 15:14 05/27/24 15:14 Oxygen Delivery Method Room Air Weight: 260 lb Body Mass Index (BMI) 44.6 Charges/Coding Visit Charges Office Visits / Consults: 87379 OV L3 Est 20min Physical Exam Const alert, oriented x3 and no apparent distress General Appearance: cooperative and comfortable HEENT normocephalic, head/scalp atraumatic, hearing grossly normal bilaterally, external ears normal and external nose normal Eyes EOMs intact bilaterally General Eye: normal appearance of both eyes Neck General: normal visual inspection and trachea midline Resp normal respiratory effort Effort and Inspection: able to speak in complete sentences Cardio regular rate and regular rhythm Extremity Extremity Narrative: Significant bilateral lower extremity edema, nonpitting (05/06) R calf 53.5 cm, R ankle 29.5 cm --> (05/27) R calf 51 cm, R ankle 28.5 cm (05/06) L calf 51.5 cm, L ankle 29.5 cm --> (05/27) L calf 51 cm, L ankle 28.5 cm Peripheral Pulses: Yes pulses 2+ throughout Skin Skin Narrative: Scars from prior ulcerations at the anterior L jiménez/ankle. No active open wounds. Neuro oriented x3, CN's II-XII intact bilaterally, moves all extremities and no focal motor deficits Speech: speech normal Debridement Note Debridement Note No debridement was completed: No debridement was completed today Post-Debridement Measurements and Additional Note: Post-Debridement Measurements/Treatment WC - Nurse 1 - General Ulcer Assessment Start: 05/06/24 14:17 Freq: Status: Active Protocol: NAVID Activity Type Activity Date Activity User E-sign Co-sign Detail Recorded Client Recorded Date Recorded By Document 05/06/24 14:17 KW ; 05/06/24 14:19 KW Edit Result 05/06/24 14:17 KW (1) ; 05/06/24 14:36 KW Document 05/13/24 13:40 ML [email or web address] 05/13/24 13:43 ML Document 05/27/24 15:14 KW [facility] 05/27/24 15:22 KW (1) Right - Posterior Tibial Doppler => Monophasic - Dorsalis Pedis Doppler => Monophasic - Hair Growth on Legs => Yes - Hair Growth on Toes => Yes - Temperature of Extremity => Cool - Capillary Refill => Less than 3 => Seconds Left - Posterior Tibial Doppler => Monophasic - Dorsalis Pedis Doppler => Multiphasic - Hair Growth on Legs => Yes - Hair Growth on Toes => No - Temperature of Extremity => Cool - Capillary Refill => Less than 3 => Seconds Preferred language => Estonian Able to Read => Yes Able to Write => Yes Communication Tools => None Caregiver Communication Skills => No Impairment Impairment Right Hearing Abillity => Normal Left Hearing Abillity => Normal Visual Assistive Devices => Glasses Preferences => Verbal,Written, => Demonstration Barriers to Learning => None Readiness To Learn => Excellent Willingness to Engage in Self Management => High Activies Readiness to Engage in Self Management => High Activities Anxiety Level => Calm Cooperation => Cooperative Perception => Coherent Interest in Health Problem => Asks Questions Education Importance => Acknowledges Need Does Patient Smoke tobacco or other => No substances Smoking Status => Never smoker Is Patient Diabetic => Yes Recent Decline in Ability to Perform => Denies Any => Declines Cultural/Christianity Needs that may affect => No Treatment Plan Would you allow our hospital director construction services to => No meet you for the purpose of spiritual/ emotional support? Stitch Burnisher to contact place of adventism => No 05/06/24 05/13/24 05/27/24 14:17 13:40 15:14 WC - Today's Visit Information Type of service Initial Visit Follow-up Visit Follow-up Visit (Physician/PROFESSOR OF PHILOSOPHY (Physician/PROFESSOR OF PHILOSOPHY ) ) Arrival Mode Ambulatory Ambulatory Ambulatory Transfer Assistance None Patient Identification Verified (Name & Yes Yes Yes ) Patient Requires Transmission-Based No Precautions Height and Weight Height 5 ft 4 in Weight 260 lb Weight in Pounds 260.0 lbs Weight Measurement Method Estimated by Standing Scale Patient Body Mass Index (BMI) 44.6 44.6 44.6 BMI Classification Obese Obese Obese BSA - Tamiko 2.19 Vital Signs Temperature (97.8 F-99.1 F) 97.3 F L 97.4 F L 96.8 F L Temperature Source Temporal Temporal Temporal Pulse Rate (60-100) 85 78 83 Pulse Location Monitor Monitor Monitor Respiratory Rate (12-18) 18 14 18 Respiratory rate source Observation Observation Observation Oxygen Delivery Method Room Air Room Air Blood Pressure (90/60-120/80) 161/62 H 126/61 H 140/77 H Blood Pressure Mean (mm Hg) 95 82 98 Source Monitor Monitor Monitor Position Semi-Fowlers Sitting Semi-Fowlers Blood Pressure Location Left Arm Left Forearm Left Forearm History Since Last Visit- (Skip if this is Patient's initial visit) Have you changed medications since your No No last visit? Any new allergies or adverse reactions No No Had a fall/change in ADL's that may No No increase risk of falls Signs or symptoms of abuse and/or No No neglect since last visit Have you been in the hospital since your No last visit? Has dressing in place as prescribed Yes Has compression in place as prescribed Yes Yes Has offloadiing in place as prescribed N/A N/A Experienced any changes in pain level or No No management Left Footwear Regular Shoe Regular Shoe Regular Shoe Right Footwear Regular Shoe Regular Shoe Regular Shoe Pain Scale: 0-10 Numeric Is Patient Pain Free? Yes Yes Yes Lower Extremity Assessment/ Foot Assessment/ Toe Nail Assessment Right -Posterior Tibial Doppler Monophasic -Dorsalis Pedis Doppler Monophasic -Hair Growth on Legs Yes -Hair Growth on Toes Yes -Temperature of Extremity Cool -Capillary Refill Less than 3 Seconds Left -Posterior Tibial Doppler Monophasic -Dorsalis Pedis Doppler Multiphasic -Hair Growth on Legs Yes -Hair Growth on Toes No -Temperature of Extremity Cool -Capillary Refill Less than 3 Seconds Communication Assessment Preferred language Estonian Able to Read Yes Able to Write Yes Communication Tools None Caregiver Communication Skills No Impairment Impairment Right Hearing Abillity Normal Left Hearing Abillity Normal Visual Assistive Devices Glasses Teaching Assessment Preferences Verbal,Written, Demonstration Barriers to Learning None Readiness To Learn Excellent Willingness to Engage in Self Management High Activies Readiness to Engage in Self Management High Activities Anxiety Level Calm Cooperation Cooperative Perception Coherent Interest in Health Problem Asks Questions Education Importance Acknowledges Need Does Patient Smoke tobacco or other No substances Smoking Status Never smoker Is Patient Diabetic Yes Functional Assessment Recent Decline in Ability to Perform Denies Any Declines Culture/Christianity/Stitch Burnisher Cultural/Christianity Needs that may affect No Treatment Plan Would you allow our hospital director construction services to No meet you for the purpose of spiritual/ emotional support? Stitch Burnisher to contact place of adventism No WC - Nurse 1 - General Ulcer Measurement Start: 05/06/24 14:17 Freq: Status: Active Protocol: Activity Type Activity Date Activity User E-sign Co-sign Detail Recorded Client Recorded Date Recorded By Document 05/13/24 13:40 ML [email or web address] 05/13/24 13:43 ML 05/13/24 13:40 Wound Center Nurse 1 Lower Limb Edema Present Yes Right Calf (cm) 52 Right Ankle (cm) 30 Left Calf (cm) 51 Left Ankle (cm) 29 - Nurse 2 - General Ulcer CM Notes Start: 05/06/24 14:17 Freq: Status: Active Protocol: Activity Type Activity Date Activity User E-sign Co-sign Detail Recorded Client Recorded Date Recorded By Document 05/06/24 14:45 GM 05/06/24 15:04 GM Document 05/13/24 14:09 [facility] 05/13/24 14:09 GM Document 05/27/24 15:29 BMF [email or web address] 05/27/24 15:37 BMF 05/06/24 05/13/24 05/27/24 14:45 14:09 15:29 Pain Scale: 0-10 Numeric Is Patient Pain Free? Yes Yes Yes - Nurse 3 - General Ulcer D/C NN Start: 05/06/24 14:17 Freq: Status: Active Protocol: Activity Type Activity Date Activity User E-sign Co-sign Detail Recorded Client Recorded Date Recorded By Document 05/06/24 15:17 KW ; 05/06/24 15:18 KW Document 05/13/24 14:21 KW f 05/13/24 14:22 KW Document 05/27/24 15:51 KW f 05/27/24 15:52 KW 05/06/24 05/13/24 05/27/24 15:17 14:21 15:51 Wound Care Center Nurse 3 Right -Tubular Bandage Single Layer Single Layer -Size of Tubigrip Used Size F Size F Size F -Size F ($) 1 2 -Other SENT A SECOND CUT HOME Left -Tubular Bandage Single Layer Single Layer -Size of Tubigrip Used Size F Size F Size F -Size F ($) 1 2 -Other SENT A SECOND ONE HOME Pain Scale: 0-10 Numeric Is Patient Pain Free? Yes Yes Yes - Visit Discharge Discharge Condition Stable Stable Ambulatory Status Ambulatory Ambulatory Transportation Private Auto Private Auto Medication Reconcilliation completed & No No provided to patient/care provider Clinical Summary of Care Provided Yes Yes Assessment/Plan Assessment/Plan (1) Lymphedema: CODE(S): I89.0 - Lymphedema, not elsewhere classified PLAN: Possible etiologies of her edema include likely lymphedema and/or venous insufficiency. Venous reflux study showed right SFJ, ASV incompetence and left SFJ, ASV incompetence. She has remained very adherent to conservative management measures including consistent use of compression garments, leg elevation, regular exercise, and weight loss. Despite these efforts, significant lymphedema symptoms persist including edema, leg heaviness, chronic skin changes. Will submit for lymphedema pumps. Will continue with compression with high-strength Tubigrips for now. She will return to the wound center in 2-3 weeks to reassess, sooner as needed.
== END 2024-05-27 23:59 | disposition home or self-care (01) ==
LOC: WC 15:00
PROVIDERS: PCP Family Medicine; Referring Provider Dermatology Pediatric Dermatology; Visit Provider Physician Assistant
DX: I89.0 Lymphedema, not elsewhere classified (principal); Z79.01 Long term (current) use of anticoagulants
CPT/HCPCS: 93970; 99213; G0463

== ENCOUNTER 2024-06-17 15:50 | Outpatient (RCR) | payer MEDICARE, SELFPAY ==
[2024-05-28 00:05] VITALS: BP 140/77; PULSE 83; RESP 18; TEMP 36; BMI 44.6
[2024-06-17 15:40] VITALS: BP 145/68; PULSE 82; RESP 16; TEMP 36.2; BMI 44.6
--- NOTE | 2024-06-17 15:58 | PCM.WC.PN ---
History of Present Illness Date of Service: 06/17/24 Chief Complaint: BLE edema History of Wound: Ann Manzo is a 73 y/o female who presents to the wound healing center for evaluation and management of bilateral lower extremity edema as referred by Dr. Powell. She reports that Dr. Powell and her PCP feel that she has lymphedema and have referred her here for further management. She reports longstanding history of bilateral lower extremity edema which has become worse and developed associated skin blistering and ulcerations over the last 7 months or so. At present, she does not have any active open wounds. However, she shares pictures from the last few months in which she clearly has clusters of fluid-filled blisters and subsequent ulceration on her anterior distal shins. She has been working with her PCP to manage her edema. She has been diligent is adjusting her diet by reducing sodium intake and monitoring her water intake. She has been working on losing weight. She is very diligent in elevating her legs at all times of rest and estimates she spends 5 hours a day elevating her legs. She does try to participate in regular exercise such as walking and water aerobics. Despite these efforts she does have significant persistent edema and associated symptoms such as chronic skin thickening and discoloration. She has not been wearing much compression as she has really struggled to find compression stockings that fit and that she is able to get on. Subjective Subjective She did have the lymphedema pump trial and did not really like how her legs felt after. Additionally, she feels content with the current management of her symptoms with compression with Tubigrips, leg elevation, exercise, and weight loss. Objective Data Objective Data Vital Signs: Vital Signs Temp Pulse Resp BP O2 Del Method 97.2 F L 82 16 145/68 H Room Air 06/17/24 15:40 06/17/24 15:40 06/17/24 15:40 06/17/24 15:40 06/17/24 15:40 Oxygen Delivery Method Room Air Weight: 260 lb Body Mass Index (BMI) 44.6 Charges/Coding Visit Charges Office Visits / Consults: 20494 OV L3 Est 20min Physical Exam Const alert, oriented x3 and no apparent distress General Appearance: cooperative and comfortable HEENT normocephalic, head/scalp atraumatic, hearing grossly normal bilaterally, external ears normal and external nose normal Eyes EOMs intact bilaterally General Eye: normal appearance of both eyes Neck General: normal visual inspection and trachea midline Resp normal respiratory effort Effort and Inspection: able to speak in complete sentences Cardio regular rate and regular rhythm Extremity Extremity Narrative: BLE edema Peripheral Pulses: Yes pulses 2+ throughout Skin Skin Narrative: Scars from prior ulcerations at the anterior L jiménez/ankle. No active open wounds. Neuro oriented x3, CN's II-XII intact bilaterally, moves all extremities and no focal motor deficits Speech: speech normal Debridement Note Debridement Note No debridement was completed: No debridement was completed today Post-Debridement Measurements and Additional Note: Post-Debridement Measurements/Treatment - Nurse 1 - General Ulcer Assessment Start: 06/17/24 15:39 Freq: Status: Active Protocol: NAVID Activity Type Activity Date Activity User E-sign Co-sign Detail Recorded Client Recorded Date Recorded By Document 06/17/24 15:40 KW [id number] 06/17/24 15:44 KW 06/17/24 15:40 WC - Today's Visit Information Type of service Follow-up Visit (Physician/HOUSE VISITOR ) Arrival Mode Ambulatory Patient Identification Verified (Name & Yes ) Height and Weight Body Mass Index (BMI) 44.6 BMI Classification Obese Vital Signs Temperature (97.8 F-99.1 F) 97.2 F L Temperature Source Temporal Pulse Rate (60-100) 82 Pulse Location Monitor Respiratory Rate (12-18) 16 Respiratory rate source Observation Oxygen Delivery Method Room Air Blood Pressure (90/60-120/80) 145/68 H Blood Pressure Mean (mm Hg) 93 Source Monitor Position Semi-Fowlers Blood Pressure Location Left Forearm History Since Last Visit- (Skip if this is Patient's initial visit) Have you changed medications since your No last visit? Any new allergies or adverse reactions No Had a fall/change in ADL's that may No increase risk of falls Signs or symptoms of abuse and/or No neglect since last visit Have you been in the hospital since your No last visit? Has dressing in place as prescribed Yes Has compression in place as prescribed Yes Has offloadiing in place as prescribed N/A Experienced any changes in pain level or No management Left Footwear Regular Shoe Right Footwear Regular Shoe Pain Scale: 0-10 Numeric Is Patient Pain Free? Yes [facility] Nurse 1 - General Ulcer Measurement Start: 06/17/24 15:39 Freq: Status: Active Protocol: Activity Type Activity Date Activity User E-sign Co-sign Detail Recorded Client Recorded Date Recorded By Document 06/17/24 15:40 KW [id number] 06/17/24 15:44 KW 06/17/24 15:40 Wound Center Nurse 1 Right Calf (cm) 52.5 Right Ankle (cm) 29 Left Calf (cm) 50 Left Ankle (cm) 28.5 WC - Nurse 2 - General Ulcer CM Notes Start: 06/17/24 15:39 Freq: Status: Active Protocol: Activity Type Activity Date Activity User E-sign Co-sign Detail Recorded Client Recorded Date Recorded By Document 06/17/24 15:51 GM [id number] 06/17/24 15:51 GM 06/17/24 15:51 Pain Scale: 0-10 Numeric Is Patient Pain Free? Yes Assessment/Plan Assessment/Plan (1) Lymphedema: CODE(S): I89.0 - Lymphedema, not elsewhere classified PLAN: She has had improvement in her edema with use of Tubigrips for compression. Her wounds have remained healed. She is content with current level of management and does not wish to proceed with lymphedema pumps which is reasonable. We discussed that should she have recurrence of her symptoms despite these other efforts then could reconsider the pumps. We also discussed that Tubigrips are not very durable and do need to be replaced every 1-2 weeks. She can certainly continue to buy her own Tubigrip rolls; however, I would recommend at least trying measured compression stockings. She did have poor experience with non-measured stockings as she found them to fit poorly and be difficult to get on and off. I advise getting measured for stockings and obtaining a donning aid. I have provided her with a prescription which she may take to [facility] or [facility]. She is agreeable. She is discharged from the wound center today and will return as needed.
== END 2024-06-17 16:08 | disposition home or self-care (01) ==
LOC: WC 15:50
PROVIDERS: PCP Family Medicine; Referring Provider Dermatology Pediatric Dermatology; Visit Provider Physician Assistant
DX: I89.0 Lymphedema, not elsewhere classified (principal)
CPT/HCPCS: 99213; G0463